=== PATIENT | female | born 1940 | race Caucasian/White ===

== ENCOUNTER 2016-07-10 04:12 | Inpatient (IN) | payer MEDICARE, BC ==
[~2016-07-10] VITALS: Ht 170.2 cm; Wt 72.1 kg
[2016-07-10] VITALS (14 sets, daily range): BP systolic 109–176; BP diastolic 68–103; PULSE 64–94; RESP 16–24; TEMP 95.7–98; O2SAT 90–97
[2016-07-10 04:42] LABS: AUTOMATED NEUTROPHIL # 5.4 TH/MM3 (1.8-7.7); BASOPHIL # 0.1 TH/MM3 (0-0.2); BASOPHIL % 0.9 % (0.0-2.0); EOSINOPHIL # 0.1 TH/MM3 (0-0.4); EOSINOPHIL % 1.4 % (0.0-4.0); HEMATOCRIT 40.2 % (35.0-46.0); HEMO FLAGS DIFF FINAL; LYMPH % 22.7 % (9.0-44.0); LYMPHOCYTE # 1.8 TH/MM3 (1.0-4.8); MEAN CELL VOLUME 82.8 FL (80.0-100.0); MEAN CORPUSCULAR HEMOGLOBIN 28.5 PG (27.0-34.0); MEAN CORPUSCULAR HGB CONC 34.4 % (32.0-36.0); MONO % 7.6 % (0.0-8.0); NEUT % 67.4 % (16.0-70.0); PLATELET COUNT 254 TH/MM3 (150-450); RED BLOOD COUNT 4.86 MIL/MM3 (4.00-5.30); RED CELL DISTRIBUTION WIDTH 14.4 % (11.6-17.2); WHITE BLOOD COUNT 8.1 TH/MM3 (4.0-11.0)
[2016-07-10 04:49] LABS: APTT (PATIENT) 36.6 SEC (24.3-30.1); INTERNATIONAL NORMALIZED RATIO 2.8 RATIO; PROTHROMBIN TIME - PATIENT 32.9 SEC (9.8-11.6)
[2016-07-10] MEDS ORDERED: FLUT1SPR5 EACH NARE (04:50)
[2016-07-10] MEDS ORDERED: COUM1TAB PO (04:50)
[2016-07-10] MEDS ORDERED: CHOL1TAB42 (04:50)
[2016-07-10] MEDS ORDERED: DILT180C7 PO (04:50)
[2016-07-10] MEDS ORDERED: ASPI81CH CHEW (04:50)
[2016-07-10] MEDS ORDERED: COUM6TAB PO (04:50)
[2016-07-10] MEDS ORDERED: OXYB10TA PO (04:50)
[2016-07-10] MEDS ORDERED: LOSA50TA PO (04:50)
[2016-07-10] MEDS ORDERED: CALCTAB19 PO (04:50)
[2016-07-10] MEDS ORDERED: PRAV20TA2 PO (04:50)
[2016-07-10] MEDS ORDERED: OMEP20CA2 (04:50)
[2016-07-10] MEDS ORDERED: HYDR25TA5 PO (04:50)
[2016-07-10] MEDS ORDERED: FLEC100T PO (04:50)
[2016-07-10] MEDS ORDERED: LEVO25TA4 PO (04:50)
[2016-07-10] MEDS ORDERED: MORPHINE SULFATE 4 MG/ML INJ IV PUSH ONE (05:00)
[2016-07-10] MEDS ORDERED: SODIUM CHLOR 0.9% 1000 ML INJ 1,000 ML IV SCH (05:00)
[2016-07-10] MEDS ORDERED: ONDANSETRON HCL 4 MG/2 ML VIAL IV PUSH ONE ×2 (05:00→21:15)
[2016-07-10 05:02] LABS: ANION GAP 9 MEQ/L (5-15); AST (GOT) 16 U/L (15-37); BICARBONATE 25.1 MEQ/L (21.0-32.0); BLOOD UREA NITROGEN 29 MG/DL (7-18); CHLORIDE 107 MEQ/L (98-107); GLOMERULAR FILTRATION RATE 33 ML/MIN (>89); POTASSIUM 4.1 MEQ/L (3.5-5.1); SODIUM (NA) 141 MEQ/L (136-145)
[2016-07-10 05:04] LABS: ALKALINE PHOSPHATASE 70 U/L (45-117); ALT (GPT) 19 U/L (10-53); TOTAL BILIRUBIN ADULT 0.2 MG/DL (0.2-1.0)
--- NOTE | 2016-07-10 05:08 | RADRPT ---
EXAM DATE/TIME: 07/10/2016 04:37 [facility] COMPARISON: No previous studies available for comparison. INDICATIONS : Trauma, fall. MEDICAL HISTORY : None. SURGICAL HISTORY : None. ENCOUNTER: Initial ACUITY: 1 day PAIN SCORE: 0/10 LOCATION: Bilateral chest FINDINGS: A single view of the chest demonstrates the lungs to be symmetrically aerated without evidence of mas s, infiltrate or effusion. The cardiomediastinal contours are unremarkable except tortuous aorta. O sseous structures are intact. CONCLUSION: 1. No acute findings. Mildly tortuous aorta. Clemente Honeycutt MD on July 10, 2016 at 5:05 Board Certified Radiologist. This report was verified electronically.
--- NOTE | 2016-07-10 05:14 | RADRPT ---
EXAM DATE/TIME: 07/10/2016 04:35 [facility] COMPARISON: No previous studies available for comparison. INDICATIONS : Trauma, fall. MEDICAL HISTORY : None. SURGICAL HISTORY : None. ENCOUNTER: Initial ACUITY: 1 day PAIN SCORE: 10/10 LOCATION: Right hip. FINDINGS: There is a mildly displaced right femoral neck fracture. No dislocation. No other fractures identifie d. Osteopenia. Probable small calcified fibroid in the central pelvis. CONCLUSION: 1. Right femoral neck fracture with mild angulation and displacement. Clemente Honeycutt MD on July 10, 2016 at 5:12 Board Certified Radiologist. This report was verified electronically.
--- NOTE | 2016-07-10 05:28 | PD ---
HPI Chief Complaint: Fall Time Seen by Provider: 04:20 Travel History International Travel<30 days: No Contact w/Intl Traveler<30days: No Traveled to known affect area: No History of Present Illness HPI The patient is a 76 year old female who presents to the [facility] emergency department with a history of reportedly when getting out of bed this morning slipping on the floor and landing on her right lateral hip. The patient reports that she heard a pop. She was not able to get up. She reports having severe right groin, right hip pain. The patient is noted to have a slightly shortened, externally rotated right hip. The patient was brought in by ambulance services. The patient denies hitting her head or losing consciousness. She denies having any neck pain, paresthesias, or weakness in her extremities. He denies having any chest pain, chest pressure, or shortness of breath. She does have a history of atrial fibrillation and is chronically anticoagulated on Coumadin. She reports that she last had her INR checked 3 weeks ago. She reports that her INR has been therapeutic. She is on 6 mg of Coumadin daily. The patient denies any recent fevers, cough, congestion, abdominal pain, vomiting, diarrhea, urinary symptoms, or neurologic symptoms. [facility] Past Medical History Narrative Medical The patient's past medical history is significant for atrial fibrillation, hypertension, hyperlipidemia, strabismus, hypothyroid disorder, acid reflux Atrial Fibrillation: Yes Heart Rhythm Problems: Yes High Cholesterol: Yes GERD: Yes Hypertension: Yes Thyroid Disease: Yes Tetanus Vaccination: Unknown Influenza Vaccination: Yes ?: Not Tubal Ligation: Yes Past Surgical History Narrative Surgical The patient's past surgical history is significant for tonsillectomy, nodule removal from her vocal cord, cholecystectomy, left wrist ORIF, right shoulder ORIF, eye surgery 2 on the left, left breast tumor removal that was found to be benign. Appendectomy: Yes Cholecystectomy: Yes Eye Surgery: Yes (L EYE) Oral Surgery: Yes (NODULES REMOVED FROM VOCAL CORDS) Social History Alcohol Use: No Tobacco Use: No Substance Use: No Allergies-Medications (Allergen,Severity, Reaction): Coded Allergies: Codeine (Verified Allergy, Intermediate, 07/10/16) Reported Meds & Prescriptions Reported Meds & Active Scripts Active Reported Oxybutynin ER 24 HR (Oxybutynin Chloride) 10 Mg Tab 10 Mg PO DAILY Vitamin D-3 (Cholecalciferol) 2,000 Unit Tab Levothyroxine (Levothyroxine Sodium) 25 Mcg Tab 25 Mcg PO DAILY Pravastatin 20 Mg Tab 20 Mg PO DAILY Omeprazole 20 Mg Cap Losartan (Losartan Potassium) 50 Mg Tab 50 Mg PO DAILY Hydrochlorothiazide 25 Mg Tab 25 Mg PO DAILY Coumadin (Warfarin) 1 Mg Tab 1 Mg PO DAILY Coumadin (Warfarin) 6 Mg Tab 6 Mg PO DAILY Flecainide (Flecainide Acetate) 100 Mg Tab 100 Mg PO BID Diltiazem ER 24 HR (Diltiazem HCl) 180 Mg Caper 180 Mg PO DAILY Flonase Nasal [place] (Fluticasone Nasal [place]) 50 Mcg/Act [place] 50 Mcg EACH NARE BID Calcium 600+D 200 (Calcium Carbonate-Vitamin D) 600-200 Mg-Unit Tab 1 Tab PO BID Aspirin 81 Mg Chew 81 Mg CHEW DAILY Review of Systems Except as stated in HPI: all other systems reviewed are Neg General / Constitutional: No: Fever Eyes: No: Visual changes HENT: No: Headaches Cardiovascular: No: Chest Pain or Discomfort Respiratory: No: Shortness of Breath Gastrointestinal: No: Abdominal Pain Genitourinary: No: Dysuria Musculoskeletal: Positive: Myalgias, Arthralgias, Limited ROM, Pain Skin: No Rash Neurologic: No: Weakness, Focal Abnormalities, Coordination Problem, Change in Mentation, Slurred Speech, Sensory Disturbance Psychiatric: No: Depression Endocrine: No: Polydipsia Hematologic/Lymphatic: No: Easy Bruising Physical Exam Narrative General: The patient is a well-developed well-nourished female, uncomfortable appearing on examination, holding her right hip. Head and Neck exam: Head is normocephalic atraumatic. Eyes: Pupils are equal round and reactive to light. The patient has strabismus noted. She has a history of this. Nose: Midline septum with pink mucous membranes Mouth: Dentition unremarkable. Moist mucus membranes. Posterior oropharynx is not erythematous. No tonsillar hypertrophy. Uvula midline. Airway patent. Neck: No palpable lymphadenopathy. No nuchal rigidity. No thyromegaly. Cardiovascular: Regular rate and rhythm without murmurs, gallops, or rubs. The patient on her telemetry is noted to be in atrial flutter. Lungs: Clear to auscultation bilaterally. No wheezes, rhonchi, or rales. Abdomen: Soft, without tenderness to palpation in all 4 quadrants of the abdomen. No guarding, rebound, or rigidity. Normal bowel sounds are audible. Extremities: No clubbing, cyanosis, or edema. 2+ pulses in all 4 extremities. The patient has slight shortening and external rotation of the right leg. The patient has no tenderness on palpation of the foot, ankle, knee. The patient has intact sensation over all toes. The patient has less than 3 second capillary refill. The patient on examination with any type of attempted motion of the right hip has pain. Back: No costovertebral angle tenderness to palpation. Neurologic Exam: Grossly nonfocal. Skin Exam: No rash noted. Intact skin that is warm and dry. Data Data Last Documented VS Vital Signs Date Time Temp Pulse Resp B/P Pulse Ox O2 Delivery O2 Flow Rate FiO2 07/10/16 04:12 98.0 78 16 176/91 90 07/10/16 04:12 Room Air 07/10/16 04:12 2 Orders Hip, Uni(Ap&Lat) W Ap Pelvis (07/10/16 04:20) Electrocardiogram (07/10/16 04:20) Complete Blood Count With Diff (07/10/16 04:20) Comprehensive Metabolic Panel (07/10/16 04:20) Prothrombin Time / Inr (Pt) (07/10/16 04:20) Act Partial Throm Time (Ptt) (07/10/16 04:20) Urinalysis - C+S If Indicated (07/10/16 04:20) Chest, Single Ap (07/10/16 04:20) Iv Access Insert/Monitor (07/10/16 04:20) Ecg Monitoring (07/10/16 04:20) Oximetry (07/10/16 04:20) Urinary Catheter Insert/Apply (07/10/16 04:20) Morphine Inj (Morphine Inj) (07/10/16 05:00) Ondansetron Inj (Zofran Inj) (07/10/16 05:00) Sodium Chlor 0.9% 1000 Ml Inj (Ns 1000 M (07/10/16 05:00) Urine Culture (07/10/16 05:00) Admit Order (Ed Use Only) (07/10/16 06:04) Labs Laboratory Tests Test 2/07/10/16 07/10/16 04:15 04:20 05:00 Prothrombin Time 32.9 SEC Prothromb Time International 2.8 RATIO Ratio Activated Partial 36.6 SEC Thromboplast Time Sodium Level 141 MEQ/L Potassium Level 4.1 MEQ/L Chloride Level 107 MEQ/L Carbon Dioxide Level 25.1 MEQ/L Anion Gap 9 MEQ/L Blood Urea Nitrogen 29 MG/DL Creatinine 1.53 MG/DL Estimat Glomerular Filtration 33 ML/MIN Rate Random Glucose 104 MG/DL Calcium Level 8.4 MG/DL Total Bilirubin 0.2 MG/DL Aspartate Amino Transf 16 U/L (AST/SGOT) Alanine Aminotransferase 19 U/L (ALT/SGPT) Alkaline Phosphatase 70 U/L Total Protein 7.6 GM/DL Albumin 3.7 GM/DL Blood Type A NEGATIVE Blood Bank Comment White Blood Count 8.1 TH/MM3 Red Blood Count 4.86 MIL/MM3 Hemoglobin 13.8 GM/DL Hematocrit 40.2 % Mean Corpuscular Volume 82.8 FL Mean Corpuscular Hemoglobin 28.5 PG Mean Corpuscular Hemoglobin 34.4 % Concent Red Cell Distribution Width 14.4 % Platelet Count 254 TH/MM3 Mean Platelet Volume 8.5 FL Neutrophils (%) (Auto) 67.4 % Lymphocytes (%) (Auto) 22.7 % Monocytes (%) (Auto) 7.6 % Eosinophils (%) (Auto) 1.4 % Basophils (%) (Auto) 0.9 % Neutrophils # (Auto) 5.4 TH/MM3 Lymphocytes # (Auto) 1.8 TH/MM3 Monocytes # (Auto) 0.6 TH/MM3 Eosinophils # (Auto) 0.1 TH/MM3 Basophils # (Auto) 0.1 TH/MM3 CBC Comment DIFF FINAL Differential Comment Urine Color YELLOW Urine Turbidity HAZY Urine pH 6.5 Urine Specific [place] 1.020 Urine Protein TRACE mg/dL Urine Glucose (UA) NEG mg/dL Urine Ketones NEG mg/dL Urine Occult Blood TRACE Urine Nitrite NEG Urine Bilirubin NEG Urine Urobilinogen LESS THAN 2.0 MG/DL Urine Leukocyte Esterase LARGE Urine RBC 5 /hpf Urine WBC 100 /hpf Urine Squamous Epithelial <1 /hpf Cells Urine Transitional Epithelial <1 /hpf Cells Urine Bacteria MANY /hpf Urine Mucus FEW /lpf Microscopic Urinalysis Comment CULTURE INDICATED MDM Medical Decision Making Medical Screen Exam Complete: Yes Emergency Medical Condition: Yes Medical Record Reviewed: Yes Interpretation(s) Last Impressions Hip and Pelvis X-Ray 07/10/16419 Signed Impressions: Service Date/Time: Sunday, July 10, 2016 04:35 - CONCLUSION: 1. Right femoral neck fracture with mild angulation and displacement. Clemente Honeycutt MD Chest X-Ray 07/10/16419 Signed Impressions: Service Date/Time: Sunday, July 10, 2016 04:37 - CONCLUSION: 1. No acute findings. Mildly tortuous aorta. Clemente Honeycutt MD Differential Diagnosis Right hip fracture, versus dislocation, versus musculoskeletal strain Narrative Course During the course of the patients emergency department visit, the patients history, examination, and differential diagnosis were reviewed with the patient. The patient had IV access obtained and blood work sent for analysis. The patient was placed on a cardiac cath lab manager with oximetry and blood pressure monitoring. An EKG was done on arrival. The patient's EKG shows atrial flutter with a heart rate of 78, no acute ST segment changes are noted. The patient was provided morphine for pain, Zofran for nausea. The patient was started on maintenance normal saline IV fluids. Her right hip x-ray revealed a femoral neck fracture, the orthopedic physician was called regarding this patient's case. The patient will have a Calderon catheter placed to gravity. The patients laboratory studies were reviewed and remarkable for a CBC that is within normal limits, CMP that is remarkable for BUN of 29, creatinine 1.53, calcium 8.4, INR 2.8. Radiology studies were reviewed and remarkable for a right femoral neck fracture. The patients results were discussed with the patient, including the plan of care. I explained that further testing and/ or monitoring is indicated based on the patients history, examination, and/ or laboratory findings. Therefore, I recommended admission for additional evaluation. The patient expressed understanding and was agreeable with this plan. The patient was admitted to the hospital in stable condition and sent to a bed under the care of the [facility] hospitalist group. Physician Communication Physician Communication The patient's case was discussed with Dhiraj Anderson who did agree to admit the patient to the [facility] hospitalist group. The patient's case was d/w the PA for Dr. Carter in the ED. They will see the patient in consultation. Diagnosis Primary Impression: Fall Qualified Code: W19.XXXA - Fall, initial encounter Additional Impression: Fracture of femoral neck, right Qualified Code: S72.001A - Closed fracture of neck of right femur, initial encounter Admitting Information Admitting Physician Requests: Admit Brenda Lakhani MD Jul 10, 2016 05:28
[2016-07-10 05:36] LABS: BACTERIA, URINE MANY /hpf; BLOOD, URINE TRACE (NEG); COMMENT (UR) CULTURE INDICATED; CULTURE IF INDICATED CULTURE INDICATED; GLUCOSE,URINE NEG (NEG); KETONE, URINE NEG (NEG); MUCUS URINE FEW /lpf (OCC); NITRITE,URINE NEG (NEG); PH, URINE 6.5 (5.0-8.5); SQUAMOUS EPITHELIAL CELL URINE <1 /hpf (0-5); TRANSITIONAL EPI CELLS, URINE <1 /hpf; URINE COLOR YELLOW (YELLW/STRAW)
[2016-07-10] MEDS ORDERED: PHYTONADIONE 10 MG/ML VIAL SQ ONE (06:30)
[2016-07-10] MEDS ORDERED: SODIUM CHLOR 0.9% 250 ML INJ 250 ML IV ONE (06:30)
[2016-07-10] MEDS ORDERED: ACETAMINOPHEN/HYDROcodone 325 MG/5 MG TAB PO PRN (07:15)
[2016-07-10] MEDS ORDERED: ACETAMINOPHEN 325 MG TAB PO PRN (07:15)
[2016-07-10] MEDS ORDERED: NALOXONE HCL 0.4 MG/ML AMP IV PRN (07:15)
[2016-07-10] MEDS ORDERED: ACETAMINOPHEN/HYDROcodone 325 MG/7.5 MG TAB PO PRN (07:15)
[2016-07-10] MEDS ORDERED: SODIUM CHLORIDE 0.9% FLUSH 5 ML FLUSH FLUSH PRN (07:15)
[2016-07-10] MEDS ORDERED: MORPHINE SULFATE 4 MG/ML INJ IV PRN (07:15)
--- NOTE | 2016-07-10 07:16 | PD.ORT.PN ---
Subjective Subjective Remarks s/p fall at home right hip pain. Objective Vitals Vital Signs Date Time Temp Pulse Resp B/P Pulse Ox O2 Delivery O2 Flow Rate FiO2 07/10/16 04:12 98.0 78 16 176/91 90 07/10/16 04:12 78 16 90 Room Air 07/10/16 04:12 16 94 Nasal Cannula 2 Result Diagram: 07/10/1641907/10/165 Other Results Laboratory Tests Test 07/10/16 04:15 Prothrombin Time 32.9 SEC (9.8-11.6) Prothromb Time International 2.8 RATIO Ratio Imaging Last 24 hours Impressions Hip and Pelvis X-Ray 07/10/16419 Signed Impressions: Service Date/Time: Sunday, July 10, 2016 04:35 - CONCLUSION: 1. Right femoral neck fracture with mild angulation and displacement. Clemente Honeycutt MD Chest X-Ray 07/10/16419 Signed Impressions: Service Date/Time: Sunday, July 10, 2016 04:37 - CONCLUSION: 1. No acute findings. Mildly tortuous aorta. Clemente Honeycutt MD Objective Remarks RLE: pain with motion of hip. no pain in knee or ankle LLE: full motion. no pain. nvi BUE: full motion. no pain. nvi Assessment & Plan Assessment and Plan 1) Right Femoral Neck Fx -INR too high for surgery today -give 2un FFP and 10mg Vit K -redraw PT/INR at 1600 -resume diet and NPO after MN -sign consents -plan for surgery tomorrow Cong Payne Jul 10, 2016 07:16
[2016-07-10] MEDS: ONDANSETRON HCL 4 MG/2 ML VIAL IVP PRN ×3 (07:40→19:10)
[2016-07-10] MEDS: MORPHINE SULFATE 4 MG/ML INJ IV PRN ×3 (07:40→21:12)
[2016-07-10] MEDS: SODIUM CHLOR 0.9% 1000 ML INJ 1,000 ML IV SCH (08:00)
[2016-07-10] MEDS: SODIUM CHLORIDE 0.9% FLUSH 5 ML FLUSH FLUSH SCH ×2 (09:00→21:35)
[2016-07-10] MEDS ORDERED: hydrALAZINE HCL 20 MG/ML VIAL IV PUSH PRN (09:45)
[2016-07-10] MEDS: FLUTICASONE PROPIONATE 50 MCG/ACT 16 GM NASAL SPRAY EACH NARE SCH ×2 (09:45→21:00)
[2016-07-10] MEDS: TOLTERODINE TARTRATE 4 MG CAP LA PO SCH (10:00)
[2016-07-10] MEDS: cefTRIAXone INJ 1,000 MG in SODIUM CHLORIDE 0.9% INJ 100 ML IV SCH (10:34)
[2016-07-10] MEDS: DILTIAZEM-CD 180 MG CAP ER PO SCH (10:34)
[2016-07-10] MEDS: LEVOTHYROXINE SODIUM 25 MCG TAB PO SCH (10:34)
[2016-07-10] MEDS: FLECAINIDE ACETATE 100 MG TAB PO SCH ×2 (10:39→21:00)
--- NOTE | 2016-07-10 10:57 | MB ---
cc: CONNOR ROUSE MD DATE OF CONSULTATION 07/10/2016 INDICATION Cardiac clearance. HISTORY OF PRESENT ILLNESS This 76-year-old very nice female who recently got out of bed and fell, slipped on the floor landing on her right hip. She developed significant pain, heard a pop. She was brought in by ambulance and found to have a femoral neck fracture. She was seen by Orthopedics and potentially scheduled for surgery tomorrow. She has history of atrial fibrillation, follows with a [facility] up in [place], does not have a [facility] down here in [place]. 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 She does not have any prior history of any obstructive coronary disease. She states that her last heart cath was about 3-4 years ago and no intervention was done. She denies any recent exertional angina. She does have some rather infrequent atypical pain on the right side of her chest that comes maybe once a month, nonexertional, not consistent with angina. She has atrial fibrillation and prior mini-TIAs years ago. We are consulted for further recommendations and cardiac clearance. PAST MEDICAL HISTORY 1. Atrial fibrillation. 2. Hypertension. 3. Hyperlipidemia. 4. Gastroesophageal reflux disease. 5. Hypothyroidism. SOCIAL HISTORY Denies any alcohol, tobacco or drug use. ALLERGIES CODEINE. MEDICATIONS 1. Oxybutynin. 2. Vitamin D. 3. Levothyroxine. 4. Pravastatin. 5. Omeprazole. 6. Losartan. 7. Hydrochlorothiazide. 8. Coumadin. 9. Flecainide. 10. Diltiazem. 11. Flonase. 12. Calcium. 13. Aspirin. REVIEW OF SYSTEMS A 12-point review of systems was performed, negative unless otherwise noted in the History of Present Illness. PHYSICAL EXAMINATION VITAL SIGNS: Temperature is 96, pulse is 84, blood pressure 147/86 mmHg. GENERAL: Alert and oriented x 3, in no acute distress. HEENT EXAM: Pupils reactive to light and accommodation. Extraocular movements are intact. NECK: No elevation in jugular venous distension. No thyromegaly or lymphadenopathy. No carotid bruits. LUNGS: Clear to auscultation bilaterally. CARDIOVASCULAR EXAM: Irregular irregular rhythm without murmurs, rubs or gallops. ABDOMEN: Soft. Nontender, nondistended. Good bowel sounds. No hepatosplenomegaly. EXTREMITIES: No clubbing, cyanosis or edema. Good peripheral pulses. NEUROLOGIC: Cranial nerves intact. Motor and sensory grossly intact. MUSCULOSKELETAL: She has external rotation of the right leg. LABORATORY DATA WBC 8.1, hemoglobin 13.8, platelet count 254. INR is 2.8. Sodium is 141, potassium 4.1, BUN is 29, creatinine is 1.53. ASSESSMENT 1. Hip fracture. 2. Atrial fibrillation. 3. TIAs. 4. Hypertension. 5. Hyperlipidemia. PLAN The patient prior to this was otherwise functionally active, generates greater than 4 metabolic equivalents, without angina. From a cardiac perspective, there is no need for any preoperative stress test. She is an acceptable cardiovascular risk to proceed with surgery. She has slightly higher stroke risk given her age, comorbidities, atrial fibrillation and prior TIAs. Unfortunately, we do not have much alternative given the need for invasive strategy. Would recommend post-procedural to reinitiate anticoagulation as seen fit by the orthopedic surgeon. We will sign off. Call with any further questions. MD LEENA Alvarado/RAUDEL /10:04 AM /10:44 AM
[2016-07-10] MEDS: LACTATED RINGER'S 1000 ML IV SCH (12:00)
[2016-07-10] MEDS: SODIUM CHLORID 0.9% 500 ML IV SCH (12:00)
[2016-07-10] MEDS ORDERED: INSULIN HUMAN REGULAR 1,000 UNITS/10 ML VIAL SQ PRN (12:00)
[2016-07-10] MEDS ORDERED: METOPROLOL TARTRATE 25 MG TAB PO PRN (12:00)
--- NOTE | 2016-07-10 12:59 | MH ---
cc: SOUMYA MCADAMS DATE OF ADMISSION: 07/10/2016 DATE OF 1940 CHIEF COMPLAINT Fall with hip injury. TRAVEL HISTORY: She has had no travel in the past 30 days. HISTORY OF PRESENT ILLNESS This is a pleasant 76-year-old white female been in her usual state of health. She got out of the bed approximately of 300 and slipped, falling onto the floor and landing on her right hip the patient remembers hearing a popping a sound and was unable to get up she call for her to assist her and EMS was called at that time the patient denies any syncopal episodes are any loss of consciousness. She denies hitting her head and denies any nausea, vomiting, chest pain, shortness of breath or any neck pain before this incident. The patient does have a significant history of atrial field and is currently on Coumadin the patient had a according to the record. The patient had INR checked approximately three weeks ago in her level was therapeutic. She takes 6 mg of Coumadin daily. The patient denies any diarrhea. No cough. No fever and before this incident denies any generalized weakness. The patient and her are snow birds, and are here for the last few months. MEDICAL HISTORY According to the patient and record; 1. Hypertension 2. Hyperlipidemia 3. hypothyroid 4. gastroesophageal reflux disease. 5. Strabismus PAST SURGICAL HISTORY 1. Appendectomy 2. Cholecystectomy 3. left eye surgery 4. oral surgery nodules removed from her vocal cords 5. left wrist 6. right shoulder 7. Open reduction, internal fixation. 8. left breast 9. benign tumors removed. ALLERGIES CODEINE. MEDICATIONS Reported 1. Vitamin D 2. Levothyroxine 3. Oxybutynin 4. Pravastatin 5. Omeprazole 6. Losartan. 7. Hydrochlorothiazide. 8. Coumadin 6 mg table and a 1 mg 9. Flecainide 10. Cardizem a.m. 11. Fluconazole. 12. Nasal spray. 13. Calcium. 14. Aspirin. SOCIAL HISTORY Currently the patient is , lives with her . No tobacco, alcohol or illicit drug use. FAMILY HISTORY Heart disease. REVIEW OF SYSTEMS A 12-point review was done, positives noted in the history of present illness, recent fall, right groin and right hip pain. Negative for any diabetes all other systems were negative or unremarkable. EXAMINATION VITAL SIGNS: Temperature is 96.5, 98 on emergency room admission, pulse 84, respirations 20, blood pressure 147/86, has been as high as 176/91, O2 sat 93 on room air. She does have 2 liters of O2 per nasal cannula p.r.n. HEAD, EYES, EARS, NOSE, AND THROAT: Atraumatic, normocephalic. Pupils equal, round, reactive to light and accommodation at three. No scleral icterus. Mucous membranes, septum and oral cavity are pink and moist, patent airway. NECK: Neck is supple. CARDIOVASCULAR SYSTEM: The patient has a regular rhythm with some irregularity no murmurs, rubs or gallops audible. Please note that the patient is on telemetry and appears to be in atrial flutter, so regular rhythm with some irregularity she has no edema. Pulses are intact. LUNGS: Lungs are essentially clear anteriorly and posteriorly with no wheezes, rales or rhonchi. ABDOMEN: Abdomen is flat, soft, nontender, nondistended. Active bowel sounds in all four quads. EXTREMITIES: As stated no edema. Pulses are intact. She does have a external rotation to the right leg but no tenderness in her calf. The patient is guarding her right leg and hip probable secondary to her injury. NEUROLOGIC: She is alert and oriented a good historian. Her speech is clear. PSYCHIATRIC: Appropriate mood and affect. SKIN: The skin is warm and dry. Turgor is good. DIAGNOSTIC DATA WBC count 8.1, RBC 4.86, hemoglobin 13.8, hematocrit 40.2, platelet count 254. PT INR 2.8. Her urine is yellow, hazy, pH is 6.5, specific gravity 1.2020, trace of protein, negative for glucose or ketones, but a trace of blood, large amount of leukocyte esterase, negative nitrites, negative bilirubin. 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 Chest x-ray No acute findings, mildly tortuous aorta. Hip and pelvis x-ray of the right leg right femoral neck fracture with mild angulation and displacement. ASSESSMENT: 1. Right hip femoral neck fracture with angulation and displacement. Fall 2. Probable urinary tract infection. 3. Acute kidney injury. 4. Atrial fibrillation currently on Coumadin therapy. Gastroesophageal reflux disease. 5. Hyperlipidemia. 6. Hypertension. PLAN: Plan is to admit as an inpatient due to this fall. The patient is set up for surgical procedure in the a.m. Orthopedic consult has been performed and we will monitor her medical comorbidities and her postop phase with the orthopedic physician. The patient will have vital signs q.4 h and p.r.n. as needed classroom monitor secondary to her history of atrial fibrillation and current atrial flutter. The patient has received Vitamin K and her Coumadin is on hold for her surgery in the morning. We will order and monitor her labs for the a.m. with special attention to her PT level. Will place her on Rocephin for her Urinary tract infection. Pain management p.r.n. hydralazine for blood pressure. Sequential compression devices for deep venous thrombosis prophylaxis. Reconcile her medications as needed. P.r.n. meds for any fever and continuous monitoring of her vital signs for blood pressure needs and any heart rate needs. The patient will receive O2 p.r.n. her diet will be a regular diet. She will be n.p.o. at that time for her orthopedic surgical procedure. The patient understands the process, she understands her plan of care. She is full code, full aggressive care and we will follow. DICTATED BY: AMPARO Santo MD VIKI Rey/dewey /10:11 AM /12:59 PM
--- NOTE | 2016-07-10 14:41 | HHI.HP ---
[facility] Service [facility] Primary Care Physician Jefferson Dawson MD Admission Diagnosis right femoral neck fx, anticoagulated on coumadin, aflutter Diagnoses: Travel History International Travel<30 Days: No Contact w/Intl Traveler <30 Da: No Traveled to Known Affected Are: No Past Family Social History Allergies: Coded Allergies: Codeine (Verified Allergy, Intermediate, 07/10/16) Physical Exam Vital Signs Vital Signs Date Time Temp Pulse Resp B/P Pulse Ox O2 Delivery O2 Flow Rate FiO2 07/10/16 12:24 97.8 66 16 120/76 07/10/16 12:07 96.6 66 18 109/68 97 07/10/16 10:06 84 07/10/16 08:01 20 07/10/16 08:00 84 20 147/86 93 Room Air 07/10/16 08:00 96.5 90 18 157/86 97 07/10/16 07:28 94 20 158/103 93 Room Air 07/10/16 04:12 98.0 78 16 176/91 90 07/10/16 04:12 78 16 90 Room Air 07/10/16 04:12 16 94 Nasal Cannula 2 Physical Exam GENERAL: This is a well-nourished, well-developed patient, in no apparent distress. SKIN: No rashes, ecchymoses or lesions. Cool and dry. HEAD: Atraumatic. Normocephalic. No temporal or scalp tenderness. EYES: Pupils equal round and reactive. Extraocular motions intact. No scleral icterus. No injection or drainage. ENT: Nose without bleeding, purulent drainage or septal hematoma. Throat without erythema, tonsillar hypertrophy or exudate. Uvula midline. Airway patent. NECK: Trachea midline. No JVD or lymphadenopathy. Supple, nontender, no meningeal signs. CARDIOVASCULAR: Regular rate and rhythm without murmurs, gallops, or rubs. RESPIRATORY: Clear to auscultation. Breath sounds equal bilaterally. No wheezes , rales, or rhonchi. GASTROINTESTINAL: Abdomen soft, non-tender, nondistended. No hepato-splenomegaly , or palpable masses. No guarding. MUSCULOSKELETAL: Extremities without clubbing, cyanosis, or edema. No joint tenderness, effusion, or edema noted. No calf tenderness. Negative Homans sign bilaterally. NEUROLOGICAL: Awake and alert. Cranial nerves II through XII intact. Motor and sensory grossly within normal limits. Five out of 5 muscle strength in all muscle groups. Normal speech. Laboratory Laboratory Tests Test 07/10/16 07/10/16 07/10/16 07/10/16 04:15 04:20 05:00 08:02 Prothrombin Time 32.9 Prothromb Time International 2.8 Ratio Activated Partial 36.6 Thromboplast Time Sodium Level 141 Potassium Level 4.1 Chloride Level 107 Carbon Dioxide Level 25.1 Anion Gap 9 Blood Urea Nitrogen 29 Creatinine 1.53 Estimat Glomerular Filtration 33 Rate Random Glucose 104 Calcium Level 8.4 Total Bilirubin 0.2 Aspartate Amino Transf 16 (AST/SGOT) Alanine Aminotransferase 19 (ALT/SGPT) Alkaline Phosphatase 70 Total Protein 7.6 Albumin 3.7 Blood Type A NEGATIVE A NEGATIVE Blood Bank Comment White Blood Count 8.1 Red Blood Count 4.86 Hemoglobin 13.8 Hematocrit 40.2 Mean Corpuscular Volume 82.8 Mean Corpuscular Hemoglobin 28.5 Mean Corpuscular Hemoglobin 34.4 Concent Red Cell Distribution Width 14.4 Platelet Count 254 Mean Platelet Volume 8.5 Neutrophils (%) (Auto) 67.4 Lymphocytes (%) (Auto) 22.7 Monocytes (%) (Auto) 7.6 Eosinophils (%) (Auto) 1.4 Basophils (%) (Auto) 0.9 Neutrophils # (Auto) 5.4 Lymphocytes # (Auto) 1.8 Monocytes # (Auto) 0.6 Eosinophils # (Auto) 0.1 Basophils # (Auto) 0.1 CBC Comment DIFF FINAL Differential Comment Urine Color YELLOW Urine Turbidity HAZY Urine pH 6.5 Urine Specific [place] 1.020 Urine Protein TRACE Urine Glucose (UA) NEG Urine Ketones NEG Urine Occult Blood TRACE Urine Nitrite NEG Urine Bilirubin NEG Urine Urobilinogen LESS THAN 2.0 Urine Leukocyte Esterase LARGE Urine RBC 5 Urine WBC 100 Urine Squamous Epithelial <1 Cells Urine Transitional Epithelial <1 Cells Urine Bacteria MANY Urine Mucus FEW Microscopic Urinalysis Comment CULTURE INDICATED Date/Time Procedure Status Source Growth 07/10/16 05:00 Urine Culture Received Urine Random Urine Pending Result Diagram: 07/10/16 0420 07/10/16 0415 Assessment and Plan Assessment and Plan Patient seen and examined Please refer to admission H & P for details s/p fall, hip fracture pain control NPo after midnight plan for surgery in am s/p VIt k FFPs in progress labs in am n/v with likely [place], allergic to codiene, will try po dilaudid discussed with patient discussed with nursing staff discussed with Luh CHRISTENSEN Physician Certification 2 Midnight Certification Type: Admission for Inpatient Services Order for Inpatient Services The services are ordered in accordance with Medicare regulations or non- Medicare payer requirements, as applicable. In the case of services not specified as inpatient-only, they are appropriately provided as inpatient services in accordance with the 2-midnight benchmark. Estimated LOS (days): 3 days is the estimated time the patient will need to remain in the hospital, assuming treatment plan goals are met and no additional complications. Post-Hospital Plan: [facility] Emerita Pires MD Jul 10, 2016 14:41
[2016-07-10] MEDS ORDERED: HYDROmorphone HCL 2 MG TAB PO PRN (14:45)
[2016-07-10 16:59] LABS: INTERNATIONAL NORMALIZED RATIO 2.1 RATIO; PROTHROMBIN TIME - PATIENT 23.4 SEC (9.8-11.6)
[2016-07-10] MEDS ORDERED: DILTIAZEM HCL 25 MG/5 ML VIAL ONE (18:42)
[2016-07-10] MEDS ORDERED: NITROGLYCERIN 0.4 MG SL 25 TABS/BTL SL ONE (18:42)
[2016-07-10] MEDS ORDERED: NITROGLYCERIN 0.4 MG SL 25 TABS/BTL SL STA (18:46)
[2016-07-10] MEDS ORDERED: DILTIAZEM HCL 25 MG/5 ML VIAL IV STA (18:46)
[2016-07-10] MEDS ORDERED: HEPARIN SODIUM - IV 10,000 UNITS/10 ML VIAL IV PRN ×2 (19:00)
[2016-07-10] MEDS ORDERED: HEPARIN 25,000 UNITS-D5W 250 ML - PREMIX IV SCH (19:00)
[2016-07-10 19:24] LABS: AUTOMATED NEUTROPHIL # 10.8 TH/MM3 (1.8-7.7); BASOPHIL % 0.3 % (0.0-2.0); EOSINOPHIL % 0.2 % (0.0-4.0); HEMATOCRIT 39.6 % (35.0-46.0); HEMO FLAGS DIFF FINAL; LYMPH % 7.2 % (9.0-44.0); LYMPHOCYTE # 0.9 TH/MM3 (1.0-4.8); MEAN CELL VOLUME 83.1 FL (80.0-100.0); MEAN CORPUSCULAR HEMOGLOBIN 27.7 PG (27.0-34.0); MEAN CORPUSCULAR HGB CONC 33.4 % (32.0-36.0); MONO % 4.3 % (0.0-8.0); PLATELET COUNT 267 TH/MM3 (150-450); RED BLOOD COUNT 4.76 MIL/MM3 (4.00-5.30); RED CELL DISTRIBUTION WIDTH 14.5 % (11.6-17.2); WHITE BLOOD COUNT 12.3 TH/MM3 (4.0-11.0)
[2016-07-10] MEDS ORDERED: NITROGLYCERIN-DEXTROSE INJ 250 ML ONE (19:29)
--- NOTE | 2016-07-10 19:57 | RADRPT ---
EXAM DATE/TIME: 07/10/2016 18:33 [facility] COMPARISON: CHEST SINGLE AP, July 10, 2016, 4:37. INDICATIONS : Chest pain. MEDICAL HISTORY : Right femoral neck fracture SURGICAL HISTORY : None. ENCOUNTER: Subsequent ACUITY: 1 day PAIN SCORE: 4/10 LOCATION: Bilateral chest FINDINGS: Mild diffuse interstitial vascular prominence has developed. There is no evidence of consolidating ai rspace disease. Retrocardiac density containing air is characteristic of a hiatal hernia. Nasogastric tube is coiled within the hernia. No other findings noted. CONCLUSION: Mild interstitial vascular prominence which may represent mild fluid overload. Moderate size hiatal hernia with coiled NG tube as described. No evidence of consolidating airspace disease. Gurdeep Crane MD on July 10, 2016 at 19:54 Board Certified Radiologist. This report was verified electronically.
[2016-07-10] MEDS ORDERED: NITROGLYCERIN/DEXTROSE 5% 250 ML for chest pain IV SCH (20:00)
[2016-07-10 20:09] LABS: APTT (PATIENT) 37.6 SEC (24.3-30.1); PROTHROMBIN TIME - PATIENT 22.6 SEC (9.8-11.6)
[2016-07-10] MEDS ORDERED: IODIXANOL 320 MG/ML 50 ML VIAL (for Rad CT) IV ONE (20:16)
--- NOTE | 2016-07-10 20:30 | RADRPT ---
EXAM DATE/TIME: 07/10/2016 19:56 [facility] COMPARISON: No previous studies available for comparison. INDICATIONS : Shortness of breath and recent surgery. IV CONTRAST: 50 cc Visipaque (iodixanol) IV RADIATION DOSE: 23.38 CTDIvol (mGy) MEDICAL HISTORY : Hypertension. SURGICAL HISTORY : Appendectomy. Cholecystectomy.Tubal ligation. ENCOUNTER: Initial ACUITY: 1 day PAIN SCALE: 5/10 LOCATION: chest TECHNIQUE: Volumetric scanning of the chest was performed using a pulmonary embolism protocol MIP images were re constructed. Using automated exposure control and adjustment of the mA and/or kV according to patien t size, radiation dose was kept as low as reasonably achievable to obtain optimal diagnostic quality images. FINDINGS: PULMONARY ARTERIES: No filling defects are seen in the pulmonary arteries through the segmental level. LUNGS: There is interstitial prominence especially in the lower lobes is noted. There is developing airspace disease in both lower lobes especially on the right. PLEURAE: Fluid is developing in the interlobar fissures. There is no significant pleural effusion. MEDIASTINUM: There is good visualization of the great vessels of the middle mediastinum. No evidence of mediastin al or hilar adenopathy/mass. MUSCULOSKELETAL: Within normal limits for patient age. MISCELLANEOUS: Moderate to large hiatal hernia is identified. CONCLUSION: No evidence of pulmonary embolism. Basilar interstitial lung disease with developing airspace disease suggesting mild pulmonary congesti on. Moderate large hiatal hernia. Gurdeep Crane MD on July 10, 2016 at 20:25 Board Certified Radiologist. This report was verified electronically.
[2016-07-10] MEDS: PRAVASTATIN SOD 20 MG TAB PO SCH (21:00)
[2016-07-11] VITALS (13 sets, daily range): BP systolic 125–157; BP diastolic 74–87; PULSE 77–109; RESP 16–20; TEMP 96.5–98.8; O2SAT 95–97
[2016-07-11] MEDS: ONDANSETRON HCL 4 MG/2 ML VIAL IVP PRN ×3 (01:12→09:08)
[2016-07-11 01:36] LABS: BICARBONATE 24.8 MEQ/L (21.0-32.0); POTASSIUM 3.8 MEQ/L (3.5-5.1)
[2016-07-11] MEDS: HYDROmorphone HCL PF 1 MG/ML VIAL IV PRN ×2 (02:52→11:30)
[2016-07-11 02:54] LABS: AUTOMATED NEUTROPHIL # 11.1 TH/MM3 (1.8-7.7); BASOPHIL % 0.2 % (0.0-2.0); EOSINOPHIL % 0.1 % (0.0-4.0); HEMATOCRIT 39.2 % (35.0-46.0); HEMO FLAGS DIFF FINAL; LYMPH % 6.5 % (9.0-44.0); LYMPHOCYTE # 0.8 TH/MM3 (1.0-4.8); MEAN CELL VOLUME 83.2 FL (80.0-100.0); MEAN CORPUSCULAR HEMOGLOBIN 27.8 PG (27.0-34.0); MEAN CORPUSCULAR HGB CONC 33.4 % (32.0-36.0); MONO % 3.9 % (0.0-8.0); NEUT % 89.3 % (16.0-70.0); PLATELET COUNT 238 TH/MM3 (150-450); RED BLOOD COUNT 4.71 MIL/MM3 (4.00-5.30); RED CELL DISTRIBUTION WIDTH 14.6 % (11.6-17.2); WHITE BLOOD COUNT 12.4 TH/MM3 (4.0-11.0)
[2016-07-11 03:05] LABS: APTT (PATIENT) 47.4 SEC (24.3-30.1); INTERNATIONAL NORMALIZED RATIO 1.5 RATIO; PROTHROMBIN TIME - PATIENT 17.4 SEC (9.8-11.6)
[2016-07-11] MEDS: PANTOPRAZOLE 80 MG/100 ML NS IV SCH ×4 (03:39→12:47)
[2016-07-11] MEDS: SODIUM CHLORID 0.9% 500 ML IV SCH (04:40)
[2016-07-11] MEDS: SCOPOLAMINE 1.5 MG PATCH TD SCH (04:47)
[2016-07-11] MEDS: LEVOTHYROXINE SODIUM 25 MCG TAB PO SCH (05:48)
--- NOTE | 2016-07-11 07:50 | PD.ORT.PN ---
Subjective Subjective Remarks s/p fall at home right hip pain. right femoral neck fx Objective Vitals Vital Signs Date Time Temp Pulse Resp B/P Pulse Ox O2 Delivery O2 Flow Rate FiO2 07/11/16 06:00 83 07/11/16 04:00 81 07/11/16 04:00 97.9 81 16 149/76 97 07/11/16 04:00 97 Nasal Cannula 4.00 07/11/16 02:00 84 07/11/16 00:00 79 07/11/16 00:00 97 Nasal Cannula 4.00 07/11/16 00:00 96.5 79 20 154/78 97 07/10/16 22:00 77 07/10/16 20:00 74 07/10/16 20:00 96.0 74 24 151/79 92 07/10/16 19:02 96 Nasal Cannula 3.00 07/10/16 18:41 97.8 72 18 163/78 97 07/10/16 18:00 93 Nasal Cannula 2.00 07/10/16 18:00 96 4.00 07/10/16 17:05 91 07/10/16 16:00 96.7 64 16 131/69 94 07/10/16 14:00 95.7 64 18 116/81 95 07/10/16 12:24 97.8 66 16 120/76 07/10/16 12:07 96.6 66 18 109/68 97 07/10/16 10:06 84 07/10/16 08:01 20 07/10/16 08:00 84 20 147/86 93 Room Air 07/10/16 08:00 96.5 90 18 157/86 97 I/O 07/10/16 07/10/16 07/10/16 07/11/16 07/11/16 07/11/16 07:00 15:00 23:00 07:00 15:00 23:00 Intake Total 480 ml 1081 ml 403 ml Output Total 950 ml 750 ml 650 ml Balance -470 ml 331 ml -247 ml Intake Oral 480 ml IV Total 1081 ml 403 ml Output Urine Total 950 ml 650 ml 600 ml Gastric Drainage Total 100 ml 50 ml # Bowel Movements 0 0 0 Result Diagram: 07/11/16 0214 07/11/16 0037 Other Results Laboratory Tests Test 07/10/16 07/10/16 07/11/16 15:55 18:45 02:14 Prothrombin Time 23.4 SEC 22.6 SEC 17.4 SEC (9.8-11.6) (9.8-11.6) (9.8-11.6) Prothromb Time International 2.1 RATIO 2.0 RATIO 1.5 RATIO Ratio Imaging Last 24 hours Impressions Hip and Pelvis X-Ray 07/10/16419 Signed Impressions: Service Date/Time: Sunday, July 10, 2016 04:35 - CONCLUSION: 1. Right femoral neck fracture with mild angulation and displacement. Clemente Honeycutt MD Chest X-Ray 07/10/16419 Signed Impressions: Service Date/Time: Sunday, July 10, 2016 04:37 - CONCLUSION: 1. No acute findings. Mildly tortuous aorta. Clemente Honeycutt MD Objective Remarks RLE: pain with motion of hip. no pain in knee or ankle LLE: full motion. no pain. nvi BUE: full motion. no pain. nvi Assessment & Plan Assessment and Plan 1) Right Femoral Neck Fx -INR 1.5 -give 1 unit FFP -plan for hold heparin tomorrow at 4am -npo after MN -will tentatively plan for surgery tomorrow pending cardiac workup Cong Payne Jul 11, 2016 07:50
[2016-07-11] MEDS ORDERED: SODIUM CHLOR 0.9% 250 ML INJ 250 ML IV ONE (08:15)
[2016-07-11] MEDS: FLUTICASONE PROPIONATE 50 MCG/ACT 16 GM NASAL SPRAY EACH NARE SCH ×2 (09:00→21:25)
[2016-07-11] MEDS: LACTATED RINGER'S 1000 ML IV SCH (09:19)
[2016-07-11] MEDS: cefTRIAXone INJ 1,000 MG in SODIUM CHLORIDE 0.9% INJ 100 ML IV SCH (09:19)
[2016-07-11] MEDS: DILTIAZEM-CD 180 MG CAP ER PO SCH (09:20)
[2016-07-11] MEDS: FLECAINIDE ACETATE 100 MG TAB PO SCH (09:20)
[2016-07-11] MEDS: TOLTERODINE TARTRATE 4 MG CAP LA PO SCH (09:20)
[2016-07-11] MEDS: SODIUM CHLORIDE 0.9% FLUSH 5 ML FLUSH FLUSH SCH ×2 (09:23→21:23)
--- NOTE | 2016-07-11 09:24 | PD.CARD.PN ---
Subjective Subjective Remarks events noted from last night acute onset of substernal CP, diaphoresis, and N/V stat CTA showed no pulmonary embolism. Aorta not dilated. no obvious dissection. on heparin gtt and nitro gtt. Objective Medications Active Medications Ceftriaxone Sodium/Sodium Chloride (Rocephin Inj/NS Inj) 100 ml @ 200 mls/hr Q24H IV Last administered on 07/10/16 10:34; Admin Dose 200 MLS/HR; Start 07/10 at 10:00 Diltiazem HCl (Cardizem Cd) 180 mg DAILY PO Last administered on 07/10/16 10:34 ; Admin Dose 180 MG; Start 07/10/16 at 10:00 Diltiazem HCl 25 mg 25 mg STK-MED ONCE .ROUTE; Start 07/10/16 at 18:42; Stop at 18:43; Status DC Flecainide Acetate (Tambocor) 100 mg BID PO Last administered on 07/10/16 10:39 ; Admin Dose 100 MG; Start 07/10/16 at 09:45 Fluticasone Propionate (Flonase Marcial Spr) 1 spray BID EACH NARE; Start 07/10/16 at 09:45 Heparin Sodium (Porcine) (Heparin Inj) 5,000 units UNSCH PRN IV; Start at 19:00; Status Future Hold Heparin Sodium (Porcine) 2500 units 2,500 units UNSCH PRN IV; Start 07/10/16 at 19:00; Status Future Hold Heparin Sodium/ Dextrose (Heparin-D5W Inj) 250 ml @ 0 mls/hr TITRATE IV Last administered on 07/10/16 21:47; Admin Dose 0 MLS/HR; Start 07/10/16 at 19:00 Hydralazine HCl 10 mg 10 mg Q6H PRN IV PUSH; Start 07/10/16 at 09:45 Hydromorphone HCl (Dilaudid) 2 mg Q4H PRN PO; Start 07/10/16 at 14:45 Hydromorphone HCl 0.5 mg 0.5 mg Q4H PRN IV Last administered on 07/11/16 02:52 ; Admin Dose 0.5 MG; Start 07/11/16 at 02:45 Iodixanol (VISIPAQUE 320 INJ (Rad CT)) 50 ml STK-MED ONCE IV Last administered on 07/10/16 20:16; Admin Dose 50 ML; Start 07/10/16 at 20:16; Stop 07/10/16 at 20:17; Status DC Lactated Ringer's 1,000 ml @ 30 mls/hr Q24H IV; Start 07/10/16 at 12:00 Levothyroxine Sodium (Synthroid) 25 mcg DAILY@06 PO Last administered on 10:34; Admin Dose 25 MCG; Start 07/10/16 at 09:45 Miscellaneous Information 1 1 Q3D TD; Start 07/14/16 at 02:45 Nitroglycerin (Nitrostat Sl (Adm Override)) 0.4 mg STK-MED ONCE SL; Start at 18:42; Stop 07/10/16 at 18:43; Status DC Nitroglycerin/ Dextrose 250 ml @ As Directed STK-MED ONCE .ROUTE; Start at 19:29; Stop 07/10/16 at 19:30; Status DC Nitroglycerin/ Dextrose (Nitroglycerin-Dextrose Inj) 250 ml @ 0 mls/hr TITRATE IV; Start 07/10/16 at 20:00 Ondansetron HCl (Zofran Inj) 4 mg Q4HR PRN IVP Last administered on 07/11/16 09 :08; Admin Dose 4 MG; Start 07/11/16 at 02:45 Ondansetron HCl (Zofran Inj) 4 mg STAT ONCE IV PUSH Last administered on 21:33; Admin Dose 4 MG; Start 07/10/16 at 21:15; Stop 07/10/16 at 21:16; Status DC Pantoprazole Sodium/Sodium Chloride (Protonix Inj/NS Inj) 100 ml @ 10 mls/hr Q10H IV Last administered on 07/11/16 03:39; Admin Dose 10 MLS/HR; Start at 02:45 Pravastatin Sodium (Pravachol) 20 mg HS PO; Start 07/10/16 at 21:00 Scopolamine (Transderm-Scop 1.5 Mg Patch.72 Hr) 1 patch Q3D TD Last administered on 07/11/16 04:47; Admin Dose 1 PATCH; Start 07/11/16 at 02:45 Sodium Chloride (NS 250 ml Inj) 250 ml @ 15 mls/hr ONCE ONCE IV; Start at 08:15; Stop 07/12/16 at 00:54 Sodium Chloride (NS 500 ml Inj) 500 ml @ 30 mls/hr [id number] IV; Start 07/10/16 at 12:00; Stop 07/11/16 at 11:59 Tolterodine Tartrate (Detrol La) 4 mg DAILY PO; Start 07/10/16 at 10:00 Vital Signs / I&O Vital Signs Date Time Temp Pulse Resp B/P Pulse Ox O2 Delivery O2 Flow Rate FiO2 07/11/16 06:00 83 07/11/16 04:00 81 07/11/16 04:00 97.9 81 16 149/76 97 07/11/16 04:00 97 Nasal Cannula 4.00 07/11/16 02:00 84 07/11/16 00:00 79 07/11/16 00:00 97 Nasal Cannula 4.00 07/11/16 00:00 96.5 79 20 154/78 97 07/10/16 22:00 77 07/10/16 20:00 74 07/10/16 20:00 96.0 74 24 151/79 92 07/10/16 19:02 96 Nasal Cannula 3.00 07/10/16 18:41 97.8 72 18 163/78 97 07/10/16 18:00 93 Nasal Cannula 2.00 07/10/16 18:00 96 4.00 07/10/16 17:05 91 07/10/16 16:00 96.7 64 16 131/69 94 07/10/16 14:00 95.7 64 18 116/81 95 07/10/16 12:24 97.8 66 16 120/76 07/10/16 12:07 96.6 66 18 109/68 97 07/10/16 10:06 84 I/O 07/10/16 07/10/16 07/10/16 07/11/16 07/11/16 07/11/16 07:00 15:00 23:00 07:00 15:00 23:00 Intake Total 480 ml 1081 ml 403 ml Output Total 950 ml 750 ml 650 ml Balance -470 ml 331 ml -247 ml Intake Oral 480 ml IV Total 1081 ml 403 ml Output Urine Total 950 ml 650 ml 600 ml Gastric Drainage Total 100 ml 50 ml # Bowel Movements 0 0 0 Physical Exam CARDIOVASCULAR: Regular rate and rhythm without murmurs, gallops, or rubs. RESPIRATORY: Breath sounds equal bilaterally. No accessory muscle use. GASTROINTESTINAL: Abdomen soft, non-tender, nondistended. Laboratory Laboratory Tests Test 07/10/16 07/10/16 07/10/16 07/11/16 15:55 18:30 18:45 00:37 Prothrombin Time 23.4 SEC 22.6 SEC Prothromb Time International 2.1 RATIO 2.0 RATIO Ratio Nasal Screen MRSA (PCR) NEGATIVE White Blood Count 12.3 TH/MM3 Red Blood Count 4.76 MIL/MM3 Hemoglobin 13.2 GM/DL Hematocrit 39.6 % Mean Corpuscular Volume 83.1 FL Mean Corpuscular Hemoglobin 27.7 PG Mean Corpuscular Hemoglobin 33.4 % Concent Red Cell Distribution Width 14.5 % Platelet Count 267 TH/MM3 Mean Platelet Volume 8.4 FL Neutrophils (%) (Auto) 88.0 % Lymphocytes (%) (Auto) 7.2 % Monocytes (%) (Auto) 4.3 % Eosinophils (%) (Auto) 0.2 % Basophils (%) (Auto) 0.3 % Neutrophils # (Auto) 10.8 TH/MM3 Lymphocytes # (Auto) 0.9 TH/MM3 Monocytes # (Auto) 0.5 TH/MM3 Eosinophils # (Auto) 0.0 TH/MM3 Basophils # (Auto) 0.0 TH/MM3 CBC Comment DIFF FINAL Differential Comment Activated Partial 37.6 SEC Thromboplast Time Troponin I 0.12 NG/ML 0.20 NG/ML Sodium Level 139 MEQ/L Potassium Level 3.8 MEQ/L Chloride Level 104 MEQ/L Carbon Dioxide Level 24.8 MEQ/L Anion Gap 10 MEQ/L Blood Urea Nitrogen 14 MG/DL Creatinine 0.87 MG/DL Estimat Glomerular Filtration 64 ML/MIN Rate Random Glucose 131 MG/DL Calcium Level 8.4 MG/DL Test 07/11/16 07/11/16 02:14 08:11 White Blood Count 12.4 TH/MM3 Red Blood Count 4.71 MIL/MM3 Hemoglobin 13.1 GM/DL Hematocrit 39.2 % Mean Corpuscular Volume 83.2 FL Mean Corpuscular Hemoglobin 27.8 PG Mean Corpuscular Hemoglobin 33.4 % Concent Red Cell Distribution Width 14.6 % Platelet Count 238 TH/MM3 Mean Platelet Volume 8.2 FL Neutrophils (%) (Auto) 89.3 % Lymphocytes (%) (Auto) 6.5 % Monocytes (%) (Auto) 3.9 % Eosinophils (%) (Auto) 0.1 % Basophils (%) (Auto) 0.2 % Neutrophils # (Auto) 11.1 TH/MM3 Lymphocytes # (Auto) 0.8 TH/MM3 Monocytes # (Auto) 0.5 TH/MM3 Eosinophils # (Auto) 0.0 TH/MM3 Basophils # (Auto) 0.0 TH/MM3 CBC Comment DIFF FINAL Differential Comment Prothrombin Time 17.4 SEC Prothromb Time International 1.5 RATIO Ratio Activated Partial 47.4 SEC Thromboplast Time Blood Bank Comment Imaging Last Impressions Hip and Pelvis X-Ray 07/10/16419 Signed Impressions: Service Date/Time: Sunday, July 10, 2016 04:35 - CONCLUSION: 1. Right femoral neck fracture with mild angulation and displacement. Clemente Honeycutt MD Chest X-Ray 07/10/16419 Signed Impressions: Service Date/Time: Sunday, July 10, 2016 04:37 - CONCLUSION: 1. No acute findings. Mildly tortuous aorta. Clemente Honeycutt MD CT Angiography 07/10/16 0000 Signed Impressions: Service Date/Time: Sunday, July 10, 2016 19:56 - CONCLUSION: No evidence of pulmonary embolism. Basilar interstitial lung disease with developing airspace disease suggesting mild pulmonary congestion. Moderate large hiatal hernia. Gurdeep Crane MD Assessment and Plan Assessment and Plan NSTEMI - new onset CP. EKG changes. troponin elevation. she will now need ischemic workup prior to clearance for surgery. Plan for LHC. afib - on heparin gtt. NPO N/V - may need GI eval. still having symptoms of N/V despite resolution of her CP on nitro gtt. Reese Johnson MD Jul 11, 2016 09:24
--- NOTE | 2016-07-11 10:56 | EKG ---
Date Performed: 07/10/2016 Time Performed: 18:06:35 PTAGE: 76 years EKG: ATRIAL FLUTTER/TACHYCARDIA MODERATE ST DEPRESSION ABNORMAL ECG PREVIOUS TRACING : 07/10/2016 04.17 DOCTOR: Reese Johnson Interpretating Date/Time 07/11/2016 10:55:00
--- NOTE | 2016-07-11 11:29 | MB ---
cc: GOGO MCADAMS MD, TODD DATE OF CONSULTATION: 07/11/2016 REASON FOR CONSULTATION Right femoral neck fracture. CONSULTING PHYSICIAN Dr. Mcadams HISTORY OF PRESENT ILLNESS Autumn is a 76-year-old female who got out of bed and had a fall. She landed on her right hip. She was at home when she fell. She denies any dizziness or syncope. She had immediate right hip pain. She was unable to stand or ambulate. She presented to the emergency room where x-rays revealed a displaced right femoral neck fracture. She did not hit her head. She has a history of atrial fibrillation and is currently on Coumadin. The patient was admitted for treatment of this injury. The patient was noted to have an abnormal EKG. Cardiology has been consulted for further treatment of her heart. She is currently on Coumadin and a heparin drip. She is currently awake and alert in the [facility]. Pain is worse with any hip motion and is improved with rest. PAST MEDICAL HISTORY ILLNESSES 1. Hypertension. 2. High cholesterol. 3. Hypothyroidism. 4. Reflux. 5. Strabismus. SURGERIES 1. Appendectomy. 2. Cholecystectomy. 3. Left eye surgery. 4. Left breast biopsy. 5. Removal of benign tumors. ALLERGIES CODEINE. MEDICATIONS 1. Vitamin-D. 2. Levothyroxine. 3. Pravastatin. 4. Oxybutynin. 5. Omeprazole. 6. Losartan. 7. Hydrochlorothiazide. 8. Coumadin. 9. Flecainide. 10.Cardizem. 11.Fluconazole. 12.Calcium. 13.Aspirin. SOCIAL HISTORY The patient is and lives with her . They are [employer] [place] and only live in [place] during the winter. She denies alcohol, tobacco or drug use. FAMILY HISTORY Positive for coronary artery disease. REVIEW OF SYSTEMS The patient denies headache, visual changes, neck pain, chest pain, shortness of breath, abdominal pain, nausea, vomiting or recent weight loss. She does complain of right hip pain. PHYSICAL EXAMINATION GENERAL: The patient is a well-developed, well-nourished 76-year-old female in no acute distress. She is awake and alert. She has she significant nausea since her hospitalization. VITAL SIGNS: Temperature 97.9, pulse 81, respirations 16, blood pressure 149/76. O2 sat is 97% on four liter nasal cannula. HEAD: The patient is normocephalic. Pupils are equal. NECK: Soft, nontender. Trachea is midline. ABDOMEN: Soft, nontender, nondistended. EXTREMITIES: Examination of bilateral upper extremities reveals no pain with shoulder, elbow or wrist motion. Skin is intact to both hands. Radial pulses are palpable. Jewel Bearing Turner strength is +5. Examination of left leg reveals no pain with hip, knee or ankle motion. Skin is intact. Dorsalis pedis pulse is palpable. Sensation is intact. Examination of right leg reveals pain with any hip motion. She has no tenderness around her knee, tibia or ankle. Skin is intact. Dorsalis pedis pulse is intact. Sensation is intact to both feet. X-RAYS X-rays of right hip were reviewed. X-rays reveal a displaced right femoral neck fracture. IMPRESSION 1. Displaced right femoral neck fracture. 2. Possible osteoporosis. 3. Acute chest pain. PLAN At this point the patient is being seen by cardiology. The patient does have elevated troponin as well as EKG changes. She is currently scheduled to go to the cardiac lab for catheterization. Once the patient's heart is stabilized and she is medically cleared she will likely need surgery on her left hip. The patient will need a left hip hemiarthroplasty. The risks of surgery include bleeding, infection, injuries to arteries, nerves and blood vessels, hip dislocation, leg length discrepancy, femur fracture, as well as medical complications including blood clot, stroke, heart attack and . All questions were answered. I will continue to follow the patient until she is cleared for surgery. If she is not cleared for surgery she may need to be treated nonoperatively. Without surgery she will be unable to ambulate. All questions were answered. A mid-level provider in my office, nurse practitioner or PA, may see this patient on a follow-up basis and continue to implement the objective of this plan including: Starting or adjusting medications, injections of muscle, tendon, bursa or joints, cast application, orthotic or brace application, physical therapy, further radiographic studies including x-ray, MRI, CT, ultrasounds or bone scan, vascular studies, neurologic studies, or other specialist consultations, and proceeding with surgical management as appropriate. MD RACHAEL Webb/MYNOR /11:03 AM /11:19 AM
--- NOTE | 2016-07-11 11:44 | EKG ---
Date Performed: 07/10/2016 Time Performed: 04:17:49 PTAGE: 76 years EKG: ATRIAL FLUTTER/TACHYCARDIA LOW QRS VOLTAGE IN EXTREMITY LEADS ST DEVIATION AND MODERATE T-W AVE ABNORMALITY, CONSIDER INFERIOR ISCHEMIA ABNORMAL ECG NO PREVIOUS TRACING DOCTOR: Reese Johnson Interpretating Date/Time 07/11/2016 11:42:55
[2016-07-11] MEDS ORDERED: IOHEXOL 350 MG/ML 50 ML BTL (for Cath Lab) OTHER ONE (13:15)
[2016-07-11] MEDS ORDERED: HEPARIN-NS/PF INJ 500 ML ONE (13:23)
--- NOTE | 2016-07-11 14:27 | HHI.PR ---
Subjective Interval History awake alert and oriented overnight events noted with patient developing chest pressure , elevated troponin , requiring transfer to ICU now chest pain free still having some nausea/ vomiting at bed side plan to go for cardiac cath later today Vitals/Results Intake & Output 07/10/16 07/10/16 07/11/16 15:00 23:00 07:00 Intake Total 480 ml 1081 ml 403 ml Output Total 950 ml 750 ml 650 ml Balance -470 ml 331 ml -247 ml Intake Oral 480 ml IV Total 1081 ml 403 ml Output Urine Total 950 ml 650 ml 600 ml Gastric Drainage Total 100 ml 50 ml # Bowel Movements 0 0 0 Vital Signs Vital Signs Date Time Temp Pulse Resp B/P Pulse Ox O2 Delivery O2 Flow Rate FiO2 07/11/16 12:00 97 Nasal Cannula 4.00 07/11/16 12:00 85 07/11/16 12:00 98.6 85 20 133/74 97 07/11/16 12:00 20 07/11/16 11:10 24 07/11/16 10:00 80 07/11/16 08:00 98.4 77 18 157/87 97 07/11/16 08:00 88 07/11/16 08:00 97 Nasal Cannula 4.00 07/11/16 06:00 83 07/11/16 04:00 81 07/11/16 04:00 97.9 81 16 149/76 97 07/11/16 04:00 97 Nasal Cannula 4.00 07/11/16 02:00 84 07/11/16 00:00 79 07/11/16 00:00 97 Nasal Cannula 4.00 07/11/16 00:00 96.5 79 20 154/78 97 07/10/16 22:00 77 07/10/16 20:00 74 07/10/16 20:00 96.0 74 24 151/79 92 07/10/16 19:02 96 Nasal Cannula 3.00 07/10/16 18:41 97.8 72 18 163/78 97 07/10/16 18:00 93 Nasal Cannula 2.00 07/10/16 18:00 96 4.00 07/10/16 17:05 91 07/10/16 16:00 96.7 64 16 131/69 94 CBC/BMP: 07/11/16 0214 07/11/16 0037 Lab Results Laboratory Tests Test 07/10/16 07/10/16 07/10/16 07/11/16 15:55 18:30 18:45 00:37 Prothrombin Time 23.4 SEC 22.6 SEC Prothromb Time International 2.1 RATIO 2.0 RATIO Ratio Nasal Screen MRSA (PCR) NEGATIVE White Blood Count 12.3 TH/MM3 Red Blood Count 4.76 MIL/MM3 Hemoglobin 13.2 GM/DL Hematocrit 39.6 % Mean Corpuscular Volume 83.1 FL Mean Corpuscular Hemoglobin 27.7 PG Mean Corpuscular Hemoglobin 33.4 % Concent Red Cell Distribution Width 14.5 % Platelet Count 267 TH/MM3 Mean Platelet Volume 8.4 FL Neutrophils (%) (Auto) 88.0 % Lymphocytes (%) (Auto) 7.2 % Monocytes (%) (Auto) 4.3 % Eosinophils (%) (Auto) 0.2 % Basophils (%) (Auto) 0.3 % Neutrophils # (Auto) 10.8 TH/MM3 Lymphocytes # (Auto) 0.9 TH/MM3 Monocytes # (Auto) 0.5 TH/MM3 Eosinophils # (Auto) 0.0 TH/MM3 Basophils # (Auto) 0.0 TH/MM3 CBC Comment DIFF FINAL Differential Comment Activated Partial 37.6 SEC Thromboplast Time Troponin I 0.12 NG/ML 0.20 NG/ML Sodium Level 139 MEQ/L Potassium Level 3.8 MEQ/L Chloride Level 104 MEQ/L Carbon Dioxide Level 24.8 MEQ/L Anion Gap 10 MEQ/L Blood Urea Nitrogen 14 MG/DL Creatinine 0.87 MG/DL Estimat Glomerular Filtration 64 ML/MIN Rate Random Glucose 131 MG/DL Calcium Level 8.4 MG/DL Test 07/11/16 07/11/16 02:14 08:11 White Blood Count 12.4 TH/MM3 Red Blood Count 4.71 MIL/MM3 Hemoglobin 13.1 GM/DL Hematocrit 39.2 % Mean Corpuscular Volume 83.2 FL Mean Corpuscular Hemoglobin 27.8 PG Mean Corpuscular Hemoglobin 33.4 % Concent Red Cell Distribution Width 14.6 % Platelet Count 238 TH/MM3 Mean Platelet Volume 8.2 FL Neutrophils (%) (Auto) 89.3 % Lymphocytes (%) (Auto) 6.5 % Monocytes (%) (Auto) 3.9 % Eosinophils (%) (Auto) 0.1 % Basophils (%) (Auto) 0.2 % Neutrophils # (Auto) 11.1 TH/MM3 Lymphocytes # (Auto) 0.8 TH/MM3 Monocytes # (Auto) 0.5 TH/MM3 Eosinophils # (Auto) 0.0 TH/MM3 Basophils # (Auto) 0.0 TH/MM3 CBC Comment DIFF FINAL Differential Comment Prothrombin Time 17.4 SEC Prothromb Time International 1.5 RATIO Ratio Activated Partial 47.4 SEC Thromboplast Time Blood Bank Comment Physical Exam General General Appearance: No Acute Distress, Comfortable Eyes Eye Exam: Pupils Equal, Pupils Reactive Throat Throat Exam: Oral Mucosa [place] & Moist Pulmonary Resp Exam: Clear Bilaterally, Breath Sounds Equal Cardiology CV Exam: Irregular Gastrointestinal/Abdomen GI Exam: Soft, Non-Tender, Bowel Sounds Present Extremeties Extremities Exam: No Edema Neurologic Neuro Exam: Alert, Awake, Oriented, Speech Clear Psychiatric Psych Exam: Appropriate Responses Assessment/Plan Assessment/Plan ASSESSMENT: 1. Right hip femoral neck fracture with angulation and displacement. Fall 2. Probable urinary tract infection. 3. Acute kidney injury. 4. Atrial fibrillation currently on Coumadin therapy. Gastroesophageal reflux disease. 5. Hyperlipidemia. 6. Hypertension. 7. POSSIBLE NSTEMI PLAN: patient seen and examined in ICU Appreciate Cardiology input chest pain, with elevated troponin rich NSTEMI on heparin drip cardiac cath today awaiting Cardiology clearance prior to Ortho surgery h/o A flutter coumadin on hold received Vit K and FFP yesterday in prep for surgery on heparin gtt rate controlled EZEKIEL creatinine improved i/v fluids UTI on [place] Monitor cultures GNR so far Hip fracture s/p fall ortho following planning for surgery in am, but will need Cardiology clearance prior to surgery n/v likely sec to narcotics better with dilaudid prn zofran may need to add phenergan resume home meds as appropriate DVT and GI prophylaxis discussed with patient discussed with nursing staff The patient will receive O2 p.r.n. her diet will be a regular diet. She will be n.p.o. at that time for her orthopedic surgical procedure. The patient understands the process, she understands her plan of care. She is full code, full aggressive care and we will follow. Emerita Pires MD Jul 11, 2016 14:27
--- NOTE | 2016-07-11 14:28 | MA ---
cc: CONNOR ROUSE DATE: 07/11/2016 PROCEDURE PERFORMED 1. Fluoroscopy with interpretation. 2. Left heart catheterization. 3. Left ventriculography. 4. Coronary angiography. METHOD The risks, benefits and alternatives were discussed with the patient. The patient understood and consented to the procedure. The patient was brought into the catheterization lab and placed on the catheterization table. The right wrist was prepped and draped in a sterile fashion. The right wrist was anesthetized with 2% lidocaine. The right radial artery was cannulated and a 6 [place], 7 cm sheath was placed without difficulty. 200 mcg of intra-arterial nitroglycerin was given. LEFT HEART CATHETERIZATION A 6 [place], JR5 catheter was advanced across the aortic valve without difficulty. Intraventricular hemodynamics measured at 161/10 mmHg and left ventricular end-diastolic pressure of 20 mmHg. No significant aortic stenosis by transaortic valvular pullback gradient. LEFT VENTRICULOGRAPHY Left ventriculography was performed in a right anterior oblique view using a 12 cc contrast injection with good opacification. The left ventricular ejection fraction was visually estimated at 65% without regional wall motion abnormalities. No significant mitral regurgitation was noted. CORONARY ANGIOGRAPHY 1. The left main coronary is angiographically normal. 2. The left anterior descending coronary has minor luminal irregularities. The diagonal branch has minor luminal irregularities. 3. The left circumflex has 20% stenosis in the first obtuse marginal branch. 4. The right coronary has 30% stenosis in the midsegment. The posterior descending coronary is widely patent. CONCLUSIONS 1. Mild nonobstructive coronary artery disease. 2. Normal left ventricular systolic function. PLAN The etiology to her chest pain is unclear. CT of the chest was unremarkable for pulmonary embolism or dissection. In addition now coronary angiogram shows no significant obstruction. She is cleared from a cardiac perspective to proceed with hip surgery. She will need further evaluation for the persistent nausea and vomiting from a GI perspective. MD LEENA Alvarado/MYNOR /1:56 PM /2:21 PM
[2016-07-11] MEDS ORDERED: PHYTONADIONE 10 MG/ML VIAL SQ ONE (17:00)
[2016-07-11] MEDS: SODIUM CHLOR 0.9% 1000 ML INJ 1,000 ML IV SCH ×2 (17:37→17:39)
--- NOTE | 2016-07-11 20:00 | EC ---
Study Study Date:07/11/2016 STUDY CONCLUSIONS SUMMARY - Left ventricle: The cavity size was normal. Wall thickness was normal. Systolic function was normal. The estimated ejection fraction was in the range of 60% to 65%. Wall motion was normal; there were no regional wall motion abnormalities. Doppler parameters are consistent with abnormal left ventricular relaxation (grade 1 diastolic dysfunction). - Aortic valve: Valve area: 1.92cm^2(VTI). Valve area: 1.97cm^2 (Vmax). - Mitral valve: Moderate regurgitation directed eccentrically and posteriorly. - Left atrium: The atrium was moderately dilated. - Tricuspid valve: Mild regurgitation. - Pulmonary arteries: PA peak pressure: 36mm Hg (S). If LV function is below 40, please consider prescribing an ACEI or ARB or document rationale for non-use. PROCEDURE DATA STUDY STATUS: Elective. Procedure: Transthoracic echocardiography. Image quality was good. Scanning was performed from the parasternal, apical, and subcostal acoustic windows. Study completion: The patient tolerated the procedure well. Transthoracic echocardiography. M-mode, complete 2D, complete spectral Doppler, and color Doppler. Height: Height: 67in. Weight: Weight: 156.7lb. Body mass index: BMI: 24.6kg/m^2. Body surface area: BSA: 1.82m^2. Patient status: Inpatient. CARDIAC ANATOMY LEFT VENTRICLE: The cavity size was normal. Wall thickness was normal. Systolic function was normal. The estimated ejection fraction was in the range of 60% to 65%. Wall motion was normal; there were no regional wall motion abnormalities. Doppler parameters are consistent with abnormal left ventricular relaxation (grade 1 diastolic dysfunction). AORTIC VALVE: Trileaflet; mildly thickened, mildly calcified leaflets. Doppler: Transvalvular velocity was within the normal range. There was no stenosis. No regurgitation. Valve area: 1.92cm^2(VTI). Indexed valve area: 1.05cm^2/m^2 (VTI). Valve area: 1.97cm^2 (Vmax). Indexed valve area: 1.08cm^2/m^2 (Vmax). Mean gradient: 4mm Hg (S). AORTA: Aortic root: The aortic root was normal in size. MITRAL VALVE: Structurally normal valve. Doppler: Transvalvular velocity was within the normal range. There was no evidence for stenosis. Moderate regurgitation directed eccentrically and posteriorly. Peak gradient: 4mm Hg (D). LEFT ATRIUM: The atrium was moderately dilated. RIGHT VENTRICLE: The cavity size was normal. Wall thickness was normal. PULMONIC VALVE: Doppler: Transvalvular velocity was within the normal range. There was no evidence for stenosis. No regurgitation. TRICUSPID VALVE: Structurally normal valve. Doppler: Transvalvular velocity was within the normal range. Mild regurgitation. PULMONARY ARTERY: The main pulmonary artery was normal-sized. Systolic pressure was within the normal range. RIGHT ATRIUM: The atrium was normal in size. PERICARDIUM: There was no pericardial effusion. SYSTEMIC VEINS: Inferior vena cava: The vessel was normal in size. Patient weight: 156.7lb _Ejection fraction:_ 65-75% _Fractional shortening:_ 32% up to 5Kg 5-11.5Kg 11.6-22.9Kg 23-45Kg 45-57Kg Aortic Root 7-13 <17 13-22 17-27 17-27 LA diam 6-13 <23 24-38 33-47 37-40 RVID 10-17 7-15 7-15 7-18 8-17 LVIDd 12-22 <32 24-38 33-47 37-40 LVPW 2-4 3-6 5-7 6-8 7-8 IVS 2-4 3-6 5-7 6-8 7-8 BASIC MEASUREMENTS ADULT NORMAL Left ventricle LV internal dimension, ED, chordal 44.8 mm 43-52 level, PLAX LV internal dimension, ES, chordal 30.5 mm 23-38 level, PLAX Fractional shortening, chordal level, 32 % >29 PLAX LV posterior wall thickness, ED 7.13 mm IVS/LVPW ratio, ED 1.08 <1.3 Ventricular septum Septal thickness, ED 7.67 mm Aortic valve Leaflet separation 15 mm 15-26 Aorta Root diameter, ED 30 mm Left atrium Anterior-posterior dimension 36 mm Anterior-posterior dimension index 1.98 cm/m^2 <2.2 BASIC MEASUREMENTS ADULT NORMAL Aortic valve Leaflet separation 15 mm 15-26 DOPPLER MEASUREMENTS ADULT NORMAL Main pulmonary artery Pressure, S *36 mm Hg =30 Aortic valve Peak velocity, S 131 cm/s Mean velocity, S 89.3 cm/s VTI, S 26.3 cm Mean gradient, S 4 mm Hg Valve area, VTI 1.92 cm^2 Valve area index, VTI 1.05 cm^2/m^2 Valve area, Vmax 1.97 cm^2 Valve area index, Vmax 1.08 cm^2/m^2 Mitral valve Peak E-wave velocity 95.8 cm/s Peak A-wave velocity 82.9 cm/s Deceleration time 165 ms 150-230 Peak gradient, D 4 mm Hg Peak E/A ratio 1.2 Tricuspid valve Regurgitant peak velocity 295 cm/s Peak RV-RA gradient, S 35 mm Hg Maximal regurgitant velocity 295 cm/s Systemic veins Estimated CVP 5 mm Hg Right ventricle RV pressure, S *40 mm Hg <30 Pulmonic valve Peak velocity, S 95.5 cm/s LEGEND: Mean values are shown as u=mean value. Asterisk (*) soto values outside specified normal range. Prepared and signed by Reese Johnson [id number]
[2016-07-11] MEDS: PRAVASTATIN SOD 20 MG TAB PO SCH (21:23)
[2016-07-12] VITALS (7 sets, daily range): BP systolic 94–121; BP diastolic 58–84; PULSE 78–120; RESP 16–27; TEMP 97.9–98.9; O2SAT 95–98
[2016-07-12] MEDS: PANTOPRAZOLE 80 MG/100 ML NS IV SCH ×6 (03:54→21:34)
[2016-07-12] MEDS: HYDROmorphone HCL PF 1 MG/ML VIAL IV PRN (04:31)
[2016-07-12 04:34] LABS: AUTOMATED NEUTROPHIL # 8.1 TH/MM3 (1.8-7.7); BASOPHIL # 0.1 TH/MM3 (0-0.2); BASOPHIL % 0.4 % (0.0-2.0); EOSINOPHIL # 0.1 TH/MM3 (0-0.4); EOSINOPHIL % 0.5 % (0.0-4.0); HEMATOCRIT 37.2 % (35.0-46.0); HEMO FLAGS DIFF FINAL; LYMPH % 19.9 % (9.0-44.0); LYMPHOCYTE # 2.4 TH/MM3 (1.0-4.8); MEAN CELL VOLUME 81.9 FL (80.0-100.0); MEAN CORPUSCULAR HEMOGLOBIN 28.5 PG (27.0-34.0); MEAN CORPUSCULAR HGB CONC 34.9 % (32.0-36.0); MONO % 11.8 % (0.0-8.0); NEUT % 67.4 % (16.0-70.0); PLATELET COUNT 274 TH/MM3 (150-450); RED BLOOD COUNT 4.54 MIL/MM3 (4.00-5.30); RED CELL DISTRIBUTION WIDTH 14.4 % (11.6-17.2); WHITE BLOOD COUNT 12.1 TH/MM3 (4.0-11.0)
[2016-07-12] MEDS: LEVOTHYROXINE SODIUM 25 MCG TAB PO SCH (04:34)
[2016-07-12 04:59] LABS: BICARBONATE 26.3 MEQ/L (21.0-32.0); POTASSIUM 3.5 MEQ/L (3.5-5.1)
--- NOTE | 2016-07-12 07:52 | PD.ORT.PN ---
Subjective Subjective Remarks s/p fall at home right hip pain. right femoral neck fx s/p cardiac cath Objective Vitals Vital Signs Date Time Temp Pulse Resp B/P Pulse Ox O2 Delivery O2 Flow Rate FiO2 07/12/16 06:00 100 07/12/16 05:42 30 07/12/16 04:00 98.9 120 27 120/84 96 07/12/16 04:00 96 Nasal Cannula 3.00 07/12/16 04:00 120 07/12/16 02:00 94 07/12/16 00:00 96 Nasal Cannula 3.00 07/12/16 00:00 97 07/12/16 00:00 98.6 97 18 121/80 96 07/11/16 22:00 95 07/11/16 20:00 96 Nasal Cannula 3.00 07/11/16 20:00 94 07/11/16 20:00 98.5 91 16 125/76 96 07/11/16 19:19 95 07/11/16 18:00 104 07/11/16 16:00 109 07/11/16 16:00 97 Nasal Cannula 4.00 07/11/16 16:00 98.8 97 16 132/84 97 07/11/16 14:00 88 07/11/16 12:00 97 Nasal Cannula 4.00 07/11/16 12:00 85 07/11/16 12:00 98.6 85 20 133/74 97 07/11/16 11:10 24 07/11/16 10:00 80 07/11/16 08:00 98.4 77 18 157/87 97 07/11/16 08:00 88 07/11/16 08:00 97 Nasal Cannula 4.00 I/O 07/11/16 07/11/16 07/11/16 07/12/16 07/12/16 07/12/16 07:00 15:00 23:00 07:00 15:00 23:00 Intake Total 403 ml 1252 ml 878 ml 939 ml Output Total 650 ml 645 ml 1000 ml 325 ml Balance -247 ml 607 ml -122 ml 614 ml Intake Oral 240 ml 240 ml 240 ml IV Total 403 ml 1012 ml 638 ml 699 ml Output Urine Total 600 ml 600 ml 1000 ml 325 ml Gastric Drainage Total 50 ml 45 ml # Bowel Movements 0 Result Diagram: 07/12/16 0357 07/12/16 0357 Imaging Last 24 hours Impressions Hip and Pelvis X-Ray 07/10/16419 Signed Impressions: Service Date/Time: Sunday, July 10, 2016 04:35 - CONCLUSION: 1. Right femoral neck fracture with mild angulation and displacement. Clemente Honeycutt MD Chest X-Ray 07/10/16419 Signed Impressions: Service Date/Time: Sunday, July 10, 2016 04:37 - CONCLUSION: 1. No acute findings. Mildly tortuous aorta. Clemente Honeycutt MD Objective Remarks RLE: pain with motion of hip. no pain in knee or ankle LLE: full motion. no pain. nvi BUE: full motion. no pain. nvi Assessment & Plan Assessment and Plan 1) Right Femoral Neck Fx -patient underwent cardiac cath yesterday which was neg. was cleared from cardiac standpoint -will plan for surgery today for right hip hemiarthroplasty Cong Payne Jul 12, 2016 07:52
[2016-07-12] MEDS: DILTIAZEM-CD 180 MG CAP ER PO SCH (08:18)
[2016-07-12] MEDS: TOLTERODINE TARTRATE 4 MG CAP LA PO SCH ×2 (08:18→08:29)
[2016-07-12] MEDS: SODIUM CHLORIDE 0.9% FLUSH 5 ML FLUSH FLUSH SCH (08:19)
[2016-07-12] MEDS: cefTRIAXone INJ 1,000 MG in SODIUM CHLORIDE 0.9% INJ 100 ML IV SCH (08:19)
[2016-07-12] MEDS: SODIUM CHLOR 0.9% 1000 ML INJ 1,000 ML IV SCH ×2 (08:19)
[2016-07-12] MEDS: FLUTICASONE PROPIONATE 50 MCG/ACT 16 GM NASAL SPRAY EACH NARE SCH ×2 (08:27→21:00)
[2016-07-12 08:32] LABS: INTERNATIONAL NORMALIZED RATIO 1.1 RATIO; PROTHROMBIN TIME - PATIENT 12.2 SEC (9.8-11.6)
[2016-07-12] MEDS ORDERED: VANCOMYCIN HCL 1000 MG VIAL ONE (08:51)
[2016-07-12] MEDS ORDERED: ceFAZolin 2 GM PREMIX 50 ML ONE (08:51)
[2016-07-12] MEDS ORDERED: GENTAMICIN SULFATE 80 MG/2 ML VIAL ONE (08:51)
[2016-07-12] MEDS ORDERED: ACETAMINOPHEN 1000 MG/100 ML VIAL IV ONE (09:20)
[2016-07-12] MEDS ORDERED: FAMOTIDINE 20 MG/2 ML VIAL ONE (09:20)
[2016-07-12] MEDS ORDERED: ceFAZolin INJ 1,000 MG VIAL ONE (09:20)
[2016-07-12] MEDS ORDERED: fentaNYL CITRATE 250 MCG/5 ML AMP ONE (09:21)
[2016-07-12] MEDS ORDERED: DEXAMETHASONE SOD PHOS 4 MG/ML VIAL ONE (09:21)
[2016-07-12] MEDS ORDERED: MIDAZOLAM HCL 2 MG/2 ML VIAL ONE (09:21)
[2016-07-12] MEDS ORDERED: TRANEXAMIC ACID IV SCH (10:00)
[2016-07-12] MEDS ORDERED: SODIUM CHLORIDE 0.9% IV SCH (10:00)
[2016-07-12] MEDS ORDERED: VITA2000 PO (10:07)
[2016-07-12] MEDS ORDERED: ERGO1CAP30 PO (10:07)
[2016-07-12] MEDS ORDERED: HYDR-3366 PO (10:07)
[2016-07-12] MEDS ORDERED: WALKER/ADULT/FO1 MIS (10:07)
[2016-07-12] MEDS ORDERED: CALCTAB19 PO (10:07)
[2016-07-12] MEDS ORDERED: ZOFR4TAB PO (10:10)
--- NOTE | 2016-07-12 10:42 | PD.OP ---
cc: Wes Carter MD Operative Report Date of Surgery: Jul 12, 2016 Preoperative Diagnosis: Displaced right femoral neck fracture Postoperative Diagnosis: Procedure: Right hip hemiarthroplasty Anesthesia: Gen. Surgeon: Wes Carter Cheese Grader(s): ZEV Moss PA-C The surgical procedure was assisted by my physician res habilitation assistant. My P.A. presence was necessary throughout this case for the manipulation and positioning of the surgical extremity. My P.A. was assisting me throughout the duration of this procedure. The skill set of a physician res habilitation assistant was medically necessary to complete this procedure. During the surgical case the surgical instrument technician was working at the back table and the physician res habilitation assistant was directly assisting me. Operation and Findings: PLAN OF ACTIVITY Weight bear as tolerated. IMPLANTS USED DePuy Corail size 12 stem with size 48 bipolar head and [+1.5] neck. DRAIN: 7 mm Elpidio-Todd drain DETAILS OF PROCEDURE This patient was brought into the operating room and placed on the OR table. The patient was given anesthesia. The patient received IV antibiotics. The patient was then placed in lateral decubitus position. The right hip and leg were prepped with alcohol, followed by Hibiclens and draped in a usual sterile fashion. Clean air was used for this procedure. Time out procedure was performed. The procedure began with a 5 inch incision over the posterolateral hip. The subcutaneous tissue was dissected with the Bovie. The iliotibial band were split in line with fibers. The Charnley retractor was placed. The piriformis and external rotators were released from the femur and tagged with a #1 Vicryl suture. The capsule is now incised and tagged with #1 Vicryl. The femoral neck fracture was now visualized. A corkscrew was now used to remove the femoral head. The femoral head was sized and measured. Soft tissue was now protected. The hip skid was placed underneath the femoral neck. An oscillating saw was used to make a femoral neck cut. At this point attention was turned to preparation of the proximal femur. A box osteotome was used to remove the lateral cortex of the femoral neck. The T- handle reamer was used to open the femoral canal. Next, the canal was broached. A lateralizing reamer was used to help lateralize the prosthesis. At this point a trial head and neck were placed. The hip was reduced. The patient was found to have excellent stability with good range of motion. Trial components were removed. Soft tissue and bone were thoroughly irrigated. A Corail stem was now opened. The stem was now impacted into the proximal femur. Care was taken to keep appropriate anteversion. The head and neck were now impacted onto the stem. The hip was again reduced. The hip was found to have good range of motion and good stability. Leg lengths were clinically equal. The wound was thoroughly irrigated. The capsule, piriformis and iliotibial band were closed with #1 Vicryl. Subcutaneous tissue was closed with 3-0 Vicryl. The skin was closed with milan. A sterile dressing was applied with Primapore. The patient was placed into a knee immobilizer. The patient was awakened and transferred to the recovery room in stable condition. Needle and sponge counts were correct. Wes Carter MD Jul 12, 2016 10:41
[2016-07-12] MEDS ORDERED: SODIUM CHLORIDE 0.9% FLUSH 5 ML FLUSH IVF PRN (10:45)
[2016-07-12] MEDS ORDERED: ceFAZolin 2 GM PREMIX 50 ML IV SCH (10:45)
[2016-07-12] MEDS ORDERED: ACETAMINOPHEN/HYDROcodone 325 MG/7.5 MG TAB PO PRN ×2 (10:45)
[2016-07-12] MEDS ORDERED: DO NOT ADM ANY ANTICOAGULANT DRUGS XX PRN (11:00)
[2016-07-12] MEDS ORDERED: ERGOCALCIFEROL (VIT D2) 50,000 UNIT CAP PO ONE (11:00)
[2016-07-12] MEDS ORDERED: Post-op Orders (for Pharmacy) MISC XX ONE (11:00)
[2016-07-12] MEDS ORDERED: ONDANSETRON HCL 4 MG/2 ML VIAL IV PUSH ONE (12:00)
[2016-07-12] MEDS ORDERED: NEOSTIGMINE 3 MG/3 ML SYR IV ONE (12:00)
[2016-07-12] MEDS ORDERED: PHENYLEPH/NS 1000 MCG/10 ML SYR IV ONE (12:00)
[2016-07-12] MEDS ORDERED: PROPOFOL 200 MG/20 ML AMP IV ONE (12:00)
--- NOTE | 2016-07-12 13:15 | RADRPT ---
EXAM DATE/TIME: 07/12/2016 12:05 [facility] COMPARISON: No previous studies available for comparison. INDICATIONS : Right hip replacement MEDICAL HISTORY : Hypertension. SURGICAL HISTORY : Appendectomy. Cholecystectomy.Tubal ligation. ENCOUNTER: Subsequent ACUITY: 2 days PAIN SCORE: 0/10 LOCATION: Right hip FINDINGS: Examination of the right hip was performed with AP Pelvis. Right hip arthroplasty. Post surgical cuevas ges. Surgical drain in place. Left hip intact. The acetabulum is grossly intact. CONCLUSION: Right hip arthroplasty. Alvaro Galindo MD on July 12, 2016 at 13:13 Board Certified Radiologist. This report was verified electronically.
--- NOTE | 2016-07-12 16:42 | HHI.PR ---
Subjective Subjective Remarks No chest pain No shortness of breath Hungry Alert NG tube in Family in room (Luh Chavis) Review of Systems Constitutional Constitutional: Weakness (mild) Constitutional Remarks 10 point ROS done positives noted mild weakness and constipation otherwise negative (Luh Chavis) GI/Abdomen GI/Abdominal Exam: Constipation (Luh Chavis) Vitals/Results Intake & Output 07/11/16 07/11/16 07/12/16 15:00 23:00 07:00 Intake Total 1252 ml 878 ml 939 ml Output Total 645 ml 1000 ml 325 ml Balance 607 ml -122 ml 614 ml Intake Oral 240 ml 240 ml 240 ml IV Total 1012 ml 638 ml 699 ml Output Urine Total 600 ml 1000 ml 325 ml Gastric Drainage Total 45 ml Vital Signs Vital Signs Date Time Temp Pulse Resp B/P Pulse Ox O2 Delivery O2 Flow Rate FiO2 07/12/16 15:15 97.9 80 18 94/58 98 07/12/16 13:00 88 16 119/60 95 Nasal Cannula 3 07/12/16 12:30 98 16 144/91 96 Nasal Cannula 3 07/12/16 12:00 98 16 152/86 95 Nasal Cannula 3 07/12/16 11:45 92 16 141/81 94 Nasal Cannula 3 07/12/16 11:30 98 16 146/95 95 Nasal Cannula 3 07/12/16 11:15 102 16 139/91 94 Nasal Cannula 3 07/12/16 11:05 98.5 100 16 131/85 94 Nasal Cannula 3 07/12/16 06:00 100 07/12/16 05:42 30 07/12/16 04:00 98.9 120 27 120/84 96 07/12/16 04:00 96 Nasal Cannula 3.00 07/12/16 04:00 120 07/12/16 02:00 94 07/12/16 00:00 96 Nasal Cannula 3.00 07/12/16 00:00 97 07/12/16 00:00 98.6 97 18 121/80 96 07/11/16 22:00 95 07/11/16 20:00 96 Nasal Cannula 3.00 07/11/16 20:00 94 07/11/16 20:00 98.5 91 16 125/76 96 07/11/16 19:19 95 07/11/16 18:00 104 (Luh Chavis) CBC/BMP: 07/12/16 0357 07/12/16 0357 Lab Results Laboratory Tests Test 07/12/16 07/12/16 03:57 07:55 White Blood Count 12.1 TH/MM3 Red Blood Count 4.54 MIL/MM3 Hemoglobin 13.0 GM/DL Hematocrit 37.2 % Mean Corpuscular Volume 81.9 FL Mean Corpuscular Hemoglobin 28.5 PG Mean Corpuscular Hemoglobin 34.9 % Concent Red Cell Distribution Width 14.4 % Platelet Count 274 TH/MM3 Mean Platelet Volume 8.4 FL Neutrophils (%) (Auto) 67.4 % Lymphocytes (%) (Auto) 19.9 % Monocytes (%) (Auto) 11.8 % Eosinophils (%) (Auto) 0.5 % Basophils (%) (Auto) 0.4 % Neutrophils # (Auto) 8.1 TH/MM3 Lymphocytes # (Auto) 2.4 TH/MM3 Monocytes # (Auto) 1.4 TH/MM3 Eosinophils # (Auto) 0.1 TH/MM3 Basophils # (Auto) 0.1 TH/MM3 CBC Comment DIFF FINAL Differential Comment Sodium Level 142 MEQ/L Potassium Level 3.5 MEQ/L Chloride Level 107 MEQ/L Carbon Dioxide Level 26.3 MEQ/L Anion Gap 9 MEQ/L Blood Urea Nitrogen 16 MG/DL Creatinine 1.03 MG/DL Estimat Glomerular Filtration 52 ML/MIN Rate Random Glucose 89 MG/DL Calcium Level 8.5 MG/DL 25-Hydroxy Vitamin D Total 26.1 ng/ML Prothrombin Time 12.2 SEC Prothromb Time International 1.1 RATIO Ratio (Luh Chavis) Physical Exam General General Appearance: No Acute Distress, Comfortable (Luh Chavis) Eyes Eye Exam: Pupils Equal, Pupils Reactive (Luh Chavis) Throat Throat Exam: Oral Mucosa [place] & Moist (Luh Chavis) Pulmonary Resp Exam: Clear Bilaterally, Breath Sounds Equal (Luh Chavis) Cardiology CV Exam: Irregular (Luh Chavis) Gastrointestinal/Abdomen GI Exam: Soft, Non-Tender, Bowel Sounds Present GI Remarks NG tube , discontinued this p.m. (Luh ChavisP) Musculoskeletal MS Exam: Normal Tone MS Remarks Status post right hip repair. 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 Right hip femoral neck fracture with angulation and displacement. Fall 2. Probable urinary tract infection. 3. Acute kidney injury. 4. Atrial fibrillation currently on Coumadin therapy. Gastroesophageal reflux disease. 5. Hyperlipidemia. 6. Hypertension. 7. POSSIBLE NSTEMI \Patient seen in medical room postop. Patient is up in chair and family is present Appreciate Cardiology input chest pain, with elevated troponin Initially on heparin drip , cardiac catheter done for surgical clearance and to evaluate any CAD Very minimal disease , chest pain unlikely a cardiac event, cleared for orthosis surgery today coumadin start back postop EZEKIEL Improved, B UN normal range creatinine, monitor UTI , med changed to PO Bactrim Cleared for surgery today. Seen postop without any acute issues. Up in chair NG tube in preop for nausea. Subsided. Patient is hungry. Full liquids and can resume regular food if patient has no nausea and vomiting resume home meds as appropriate DVT and GI prophylaxis D/W patient , and family . Answered questions. D/W Dr. salomon, patient seen on his behalf Calderon can be DC'd either late p.m. or early a.m. per patient's choice. (Luh Chavis) Assessment/Plan seen, examined by myself, Dr Salomon, today Doing well postoperatively, after right hip surgery Cardiac catheterization was negative Follow renal function Physical therapy She would like to go back to [place] soon Discussed with patient Discussed with mid level provider The exam, history, and the medical decision-making described in the above note were completed with the assistance of the mid-level provider. I reviewed the findings presented. I attest that I had a [id number] encounter with the patient on the same day, and personally performed and documented my assessment and findings in the medical record. . (Carmelina Salomon MD) Luh Chavis Jul 12, 2016 16:42 Carmelina Salomon MD Jul 12, 2016 18:15
[2016-07-12] MEDS: WARFARIN SOD 6 MG TAB PO SCH (18:27)
[2016-07-12] MEDS: PRAVASTATIN SOD 20 MG TAB PO SCH (20:48)
[2016-07-12] MEDS: SULFAMETHOXAZOLE-TRIMETHOPRIM DS 800-160 MG TAB PO SCH (20:48)
[2016-07-12] MEDS: SODIUM CHLORIDE 0.9% FLUSH 5 ML FLUSH IVF SCH (20:49)
[2016-07-13] VITALS (9 sets, daily range): BP systolic 101–148; BP diastolic 65–92; PULSE 80–98; RESP 16–20; TEMP 96.2–98.3; O2SAT 94–98
[2016-07-13] MEDS: LEVOTHYROXINE SODIUM 25 MCG TAB PO SCH (05:15)
[2016-07-13] MEDS: PANTOPRAZOLE 80 MG/100 ML NS IV SCH ×2 (05:16)
[2016-07-13 05:30] LABS: MEAN CELL VOLUME 82.5 FL (80.0-100.0); MEAN CORPUSCULAR HEMOGLOBIN 27.9 PG (27.0-34.0); MEAN CORPUSCULAR HGB CONC 33.8 % (32.0-36.0); PLATELET COUNT 237 TH/MM3 (150-450); RED CELL DISTRIBUTION WIDTH 14.6 % (11.6-17.2); REVIEW FLAG FINAL; WHITE BLOOD COUNT 11.8 TH/MM3 (4.0-11.0)
[2016-07-13 05:35] LABS: PROTHROMBIN TIME - PATIENT 11.4 SEC (9.8-11.6)
[2016-07-13] MEDS: SODIUM CHLOR 0.9% 1000 ML INJ 1,000 ML IV SCH ×2 (06:00→16:00)
--- NOTE | 2016-07-13 07:04 | PD.ORT.PN ---
Subjective Subjective Remarks POD 1 s/p right hip hemiarthroplasty -doing well. pain controlled. out of bed to chair yesterday Objective Vitals Vital Signs Date Time Temp Pulse Resp B/P Pulse Ox O2 Delivery O2 Flow Rate FiO2 07/13/16 04:00 96.8 85 16 101/65 95 07/13/16 02:04 81 07/13/16 00:00 98.3 96 20 148/92 98 07/12/16 20:00 97.9 78 16 98/70 96 07/12/16 15:15 97.9 80 18 94/58 98 07/12/16 13:00 88 16 119/60 95 Nasal Cannula 3 07/12/16 12:30 98 16 144/91 96 Nasal Cannula 3 07/12/16 12:00 98 16 152/86 95 Nasal Cannula 3 07/12/16 11:45 92 16 141/81 94 Nasal Cannula 3 07/12/16 11:30 98 16 146/95 95 Nasal Cannula 3 07/12/16 11:15 102 16 139/91 94 Nasal Cannula 3 07/12/16 11:05 98.5 100 16 131/85 94 Nasal Cannula 3 I/O 07/12/16 07/12/16 07/12/16 07/13/16 07/13/16 07/13/16 07:00 15:00 23:00 07:00 15:00 23:00 Intake Total 939 ml 480 ml Output Total 325 ml 533 ml Balance 614 ml -53 ml Intake Oral 240 ml 480 ml IV Total 699 ml Output Urine Total 325 ml 525 ml Drainage Total 8 ml # Bowel Movements 0 Result Diagram: 07/13/16 0500 07/12/16 0357 Other Results Laboratory Tests Test 07/12/16 07/13/16 07:55 05:00 Prothrombin Time 12.2 SEC 11.4 SEC (9.8-11.6) (9.8-11.6) Prothromb Time International 1.1 RATIO 1.0 RATIO Ratio Imaging Last 24 hours Impressions Hip and Pelvis X-Ray 07/10/16419 Signed Impressions: Service Date/Time: Sunday, July 10, 2016 04:35 - CONCLUSION: 1. Right femoral neck fracture with mild angulation and displacement. Clemente Honeycutt MD Chest X-Ray 07/10/16419 Signed Impressions: Service Date/Time: Sunday, July 10, 2016 04:37 - CONCLUSION: 1. No acute findings. Mildly tortuous aorta. Clemente Honeycutt MD Objective Remarks RLE: dressings clean and dry. intact. + drain. +knee brace. NVI Assessment & Plan Assessment and Plan 1) Right Femoral Neck Fx s/p Hemiarthroplasty - POD 1 -WBAT -posterior hip precautions -dressing changes POD 2 -knee brace while in bed -DC drain POD 2 -CM for rehab vs home with [facility]. spoke with patient and she would like to go home. informed her that she has to be able to ambulate the hallway on own and get to bathroom on own before we could consider going home instead of rehab. if struggling, will need rehab. [id number] on chart and face to face completed for either option -plan for DC either saturday/saturday -f/u with Max or JESSICA in 2 weeks -restart home dose coumadin and bridge with loveCong Hickman Jul 13, 2016 07:04
[2016-07-13] MEDS ORDERED: TRAM50TA PO (07:05)
--- NOTE | 2016-07-13 07:06 | HHI.FF ---
Face to Face Verification Diagnosis: (1) Fracture of femoral neck, right Physical Therapy Gait training Hip: Total hip, Protocol: Right, Posterior hip precautions Canvas Knee Splint: Other (only while in bed) Right LE Weight Bearing: WB as tolerated Nursing Dressing Changes: Daily dressing change, Coverderm/Primapore (begin xeroform POD 10) I have seen patient Autumn Carreno on 07/13/16. My clinical findings support the need for the requested home health care services because: Ltd mobility - disease progression I certify that my clinical findings support that this patient is homebound because: Post-op weakness Cong Payne Jul 13, 2016 07:06
[2016-07-13] MEDS: FLUTICASONE PROPIONATE 50 MCG/ACT 16 GM NASAL SPRAY EACH NARE SCH ×2 (09:00→20:54)
[2016-07-13] MEDS: SODIUM CHLORIDE 0.9% FLUSH 5 ML FLUSH IVF SCH ×2 (09:00→20:54)
--- NOTE | 2016-07-13 09:41 | HHI.PR ---
Subjective Subjective Remarks No chest pain No shortness of breath Hungry Alert in Review of Systems Constitutional Constitutional: Weakness (mild) Constitutional Remarks 10 point ROS done positives noted mild weakness and constipation otherwise negative GI/Abdomen GI/Abdominal Exam: Constipation Musculoskeletal MS: Weakness, Stiffness (post op rt. hip) Integumentary Skin: Wounds (surgical, CDI) Vitals/Results Intake & Output 07/12/16 07/12/16 07/13/16 15:00 23:00 07:00 Intake Total 480 ml Output Total 533 ml Balance -53 ml Intake Oral 480 ml Output Urine Total 525 ml Drainage Total 8 ml # Bowel Movements 0 Vital Signs Vital Signs Date Time Temp Pulse Resp B/P Pulse Ox O2 Delivery O2 Flow Rate FiO2 07/13/16 08:16 98.3 83 18 115/65 94 07/13/16 04:00 96.8 85 16 101/65 95 07/13/16 02:04 81 07/13/16 00:00 98.3 96 20 148/92 98 07/12/16 20:00 97.9 78 16 98/70 96 07/12/16 15:15 97.9 80 18 94/58 98 07/12/16 13:00 88 16 119/60 95 Nasal Cannula 3 07/12/16 12:30 98 16 144/91 96 Nasal Cannula 3 07/12/16 12:00 98 16 152/86 95 Nasal Cannula 3 07/12/16 11:45 92 16 141/81 94 Nasal Cannula 3 07/12/16 11:30 98 16 146/95 95 Nasal Cannula 3 07/12/16 11:15 102 16 139/91 94 Nasal Cannula 3 07/12/16 11:05 98.5 100 16 131/85 94 Nasal Cannula 3 CBC/BMP: 07/13/16 0500 07/12/16 0357 Lab Results Laboratory Tests Test 07/13/16 05:00 White Blood Count 11.8 TH/MM3 Red Blood Count 4.00 MIL/MM3 Hemoglobin 11.2 GM/DL Hematocrit 33.0 % Mean Corpuscular Volume 82.5 FL Mean Corpuscular Hemoglobin 27.9 PG Mean Corpuscular Hemoglobin 33.8 % Concent Red Cell Distribution Width 14.6 % Platelet Count 237 TH/MM3 Mean Platelet Volume 8.2 FL Prothrombin Time 11.4 SEC Prothromb Time International 1.0 RATIO Ratio Current Medications Active Medications Acetaminophen/ Hydrocodone Bitart (May 7.5-325 Mg) 1 tab Q4H PRN PO; Start 07/12/16 at 10:45; Stop 07/13/16 at 07:55; Status DC Acetaminophen/ Hydrocodone Bitart (May 7.5-325 Mg) 2 tab Q4H PRN PO; Start 07/12/16 at 10:45; Stop 07/13/16 at 07:55; Status DC Cefazolin Sodium/ Dextrose (Ancef 2 Gm Premix) 50 ml @ 100 mls/hr Q6H IV; Start 07/12/16 at 10:45; Stop 07/12/16 at 11:21; Status DC Cholecalciferol (Vitamin D3) 5,000 units DAILY PO; Start 07/13/16 at 09:00 Enoxaparin Sodium (Lovenox Inj) 30 mg Q24H SQ; Start 07/13/16 at 10:00; Stop 07/15 at 10:01 Ergocalciferol (Drisdol) 50,000 units ONCE ONCE PO; Start 07/12/16 at 11:00; Stop 07/12/16 at 11:01; Status DC IV Flush (NS Flush) 2 ml UNSCH PRN IVF; Start 07/12/16 at 10:45 IV Flush 2 ml 2 ml BID IVF Last administered on 07/12/16 20:49; Admin Dose 2 ML ; Start 07/12/16 at 21:00 Miscellaneous Information ALL NURSING DEPARTME... UNSCH PRN XX; Start 07/12/16 at 11:00; Stop 07/13/16 at 10:59 Miscellaneous Information (Post-op Orders (for Pharmacy)) STAT ONCE XX; Start 07/12/16 at 11:00; Stop 07/12/16 at 11:12; Status DC Miscellaneous Information 1 1 Q3D TD; Start 07/14/16 at 02:45 Patient Medication Teaching (Coumadin Booklet) 1 ONCE ONCE XX Last administered on 07/12/16 18:27; Admin Dose 1; Start 07/12/16 at 18:00; Stop at 18:01; Status DC Tramadol HCl (Ultram) 50 mg Q4H PRN PO; Start 07/13/16 at 08:00 Tranexamic Acid/ Sodium Chloride (Cyklokapron Inj/ NS Inj) 111.67 ml @ 200 mls / hr UNSCH IV; Start 07/12/16 at 10:00; Stop 07/12/16 at 14:00; Status DC Trimethoprim/ Sulfamethoxazole (Bactrim Ds 800-160 Mg) 1 tab Q12HR PO Last administered on 07/12/16 20:48; Admin Dose 1 TAB; Start 07/12/16 at 21:00 Warfarin Sodium (Coumadin) 6 mg DAILY@1600 PO Last administered on 07/12/16 18: 27; Admin Dose 6 MG; Start 07/12/16 at 18:00 Physical Exam General General Appearance: No Acute Distress, Comfortable Eyes Eye Exam: Pupils Equal, Pupils Reactive Throat Throat Exam: Oral Mucosa [place] & Moist Pulmonary Resp Exam: Clear Bilaterally, Breath Sounds Equal Cardiology CV Exam: Irregular Gastrointestinal/Abdomen GI Exam: Soft, Non-Tender, Bowel Sounds Present Musculoskeletal MS Exam: Normal Tone MS Remarks Status post right hip repair. Dressing clean dry and intact Integumentary Skin Exam: Warm, Dry, Intact, Normal Turgor Extremeties Extremities Exam: No Edema Neurologic Neuro Exam: Alert, Awake, Oriented, Speech Clear Psychiatric Psych Exam: Appropriate Responses Assessment/Plan Assessment/Plan 1. Right hip femoral neck fracture with angulation and displacement. Fall surgery yesterday. Followed per ortho for post op care and pain management. Possible Saturday or Saturday pending ambulation . Patient wants to go home, but will assess after PT works with her. 2. Probable urinary tract infection., meds , Bactrim 3. Acute kidney injury. laqbs improved, resolving 4. Atrial fibrillation currently on Coumadin therapy. Coumadin restarted. INR, 1.0 Gastroesophageal reflux, medical management, changed to Pepcid 20mg PO BID. 5. Hyperlipidemia. medical management 6. Hypertension. stable on meds. 115/65 this am 7. POSSIBLE NSTEMI, Ruled out Negative cardiac workup. Chronic atrial fib, on Coumadin 8. Constipation, added daily Miralax vitals, labs reviewed. Vitamin D level low, will discuss PO OP vitamin D med. Patient walking first time to bathroom. Will return for questions. spoke to . Luh Chavis Jul 13, 2016 09:41
[2016-07-13] MEDS: TOLTERODINE TARTRATE 4 MG CAP LA PO SCH (09:59)
[2016-07-13] MEDS: ENOXAPARIN SODIUM 30 MG/0.3 ML SYRINGE SQ SCH (09:59)
[2016-07-13] MEDS: DILTIAZEM-CD 180 MG CAP ER PO SCH (10:00)
[2016-07-13] MEDS: SULFAMETHOXAZOLE-TRIMETHOPRIM DS 800-160 MG TAB PO SCH ×2 (10:00→20:53)
[2016-07-13] MEDS: CHOLECALCIFEROL (VIT D3) 5000 UNIT CAP PO SCH (10:00)
[2016-07-13] MEDS: traMADol HCL 50 MG TAB PO PRN ×2 (10:01→17:17)
[2016-07-13] MEDS: POLYETHYLENE GLYCOL 17 GM PKG PO SCH (13:03)
[2016-07-13] MEDS: WARFARIN SOD 6 MG TAB PO SCH (17:17)
[2016-07-13] MEDS: PRAVASTATIN SOD 20 MG TAB PO SCH (20:53)
[2016-07-13] MEDS: FAMOTIDINE 20 MG TAB PO SCH (20:53)
[2016-07-13] MEDS ORDERED: FAMOTIDINE 20 MG TAB PO SCH (21:00)
[2016-07-14] VITALS (7 sets, daily range): BP systolic 107–135; BP diastolic 64–87; PULSE 79–103; RESP 16–20; TEMP 96–98.3; O2SAT 93–97
[2016-07-14] MEDS: SODIUM CHLOR 0.9% 1000 ML INJ 1,000 ML IV SCH ×3 (02:00→23:40)
[2016-07-14] MEDS: SCOPOLAMINE 1.5 MG PATCH TD SCH (02:01)
[2016-07-14] MEDS: traMADol HCL 50 MG TAB PO PRN ×4 (02:02→23:39)
[2016-07-14] MEDS ORDERED: REMOVE OLD SCOPOLAMINE PATCH TD SCH (02:45)
[2016-07-14] MEDS: LEVOTHYROXINE SODIUM 25 MCG TAB PO SCH (04:49)
[2016-07-14 07:09] LABS: INTERNATIONAL NORMALIZED RATIO 1.1 RATIO; PROTHROMBIN TIME - PATIENT 12.3 SEC (9.8-11.6)
[2016-07-14] MEDS: TOLTERODINE TARTRATE 4 MG CAP LA PO SCH (09:00)
[2016-07-14] MEDS: FLUTICASONE PROPIONATE 50 MCG/ACT 16 GM NASAL SPRAY EACH NARE SCH ×2 (09:00→23:33)
[2016-07-14] MEDS: FAMOTIDINE 20 MG TAB PO SCH ×2 (09:00→23:40)
[2016-07-14] MEDS: DILTIAZEM-CD 180 MG CAP ER PO SCH (09:21)
[2016-07-14] MEDS: SULFAMETHOXAZOLE-TRIMETHOPRIM DS 800-160 MG TAB PO SCH ×2 (09:21→23:39)
[2016-07-14] MEDS: ENOXAPARIN SODIUM 30 MG/0.3 ML SYRINGE SQ SCH (09:21)
[2016-07-14] MEDS: SODIUM CHLORIDE 0.9% FLUSH 5 ML FLUSH IVF SCH ×2 (09:21→23:40)
[2016-07-14] MEDS: CHOLECALCIFEROL (VIT D3) 5000 UNIT CAP PO SCH (09:21)
[2016-07-14] MEDS: POLYETHYLENE GLYCOL 17 GM PKG PO SCH (09:23)
--- NOTE | 2016-07-14 09:32 | PD.ORT.PN ---
Subjective Subjective Remarks doing well. would like to go rehab. Objective Vitals Vital Signs Date Time Temp Pulse Resp B/P Pulse Ox O2 Delivery O2 Flow Rate FiO2 07/14/16 04:00 96.3 88 20 116/76 95 07/14/16 00:00 96.0 90 20 135/81 95 07/13/16 20:00 96.2 89 20 126/70 98 07/13/16 16:15 97.9 80 18 122/74 95 07/13/16 15:00 98 07/13/16 12:14 97.4 80 16 124/65 95 07/13/16 09:41 96 21 I/O 07/13/16 07/13/16 07/13/16 07/14/16 07/14/16 07/14/16 07:00 15:00 23:00 07:00 15:00 23:00 Intake Total 860 ml 480 ml 240 ml Output Total 5 ml 7 ml Balance 860 ml 475 ml 233 ml Intake Oral 860 ml 480 ml 240 ml Drainage Total 5 ml 7 ml # Voids 6 2 4 # Bowel Movements 0 0 Result Diagram: 07/13/16 0500 07/12/16 0357 Other Results Laboratory Tests Test 07/14/16 06:30 Prothrombin Time 12.3 SEC (9.8-11.6) Prothromb Time International 1.1 RATIO Ratio Imaging Last 24 hours Impressions Hip and Pelvis X-Ray 07/10/16419 Signed Impressions: Service Date/Time: Sunday, July 10, 2016 04:35 - CONCLUSION: 1. Right femoral neck fracture with mild angulation and displacement. Clemente Honeycutt MD Chest X-Ray 07/10/16419 Signed Impressions: Service Date/Time: Sunday, July 10, 2016 04:37 - CONCLUSION: 1. No acute findings. Mildly tortuous aorta. Clemente Honeycutt MD Objective Remarks RLE: dressings clean and dry. intact. +knee brace. NVI Assessment & Plan Assessment and Plan 1) Right Femoral Neck Fx s/p Hemiarthroplasty - POD 2 -WBAT -posterior hip precautions -dressing changes qday -knee brace while in bed -plan for DC to rehab today to [facility] -lovenox/coumadin -f/u with Max or JESSICA in 2 weeks Morgan Moon Jr., MD Jul 14, 2016 09:32
--- NOTE | 2016-07-14 13:09 | HHI.PR ---
Subjective Remarks 76yr old female seen and examined today. No CP/SOB/NVD. Hemodynamically stable. Cleared by ortho for dc to [facility] today. Objective Objective Results - Vital Signs Date Time Temp Pulse Resp B/P Pulse Ox O2 Delivery O2 Flow Rate FiO2 07/14/16 07:52 96.7 87 16 124/80 97 07/14/16 04:00 96.3 88 20 116/76 95 07/14/16 00:00 96.0 90 20 135/81 95 07/13/16 20:00 96.2 89 20 126/70 98 07/13/16 16:15 97.9 80 18 122/74 95 07/13/16 15:00 98 I/O 07/13/16 07/13/16 07/13/16 07/14/16 07/14/16 07/14/16 07:00 15:00 23:00 07:00 15:00 23:00 Intake Total 860 ml 480 ml 240 ml Output Total 5 ml 7 ml Balance 860 ml 475 ml 233 ml Intake Oral 860 ml 480 ml 240 ml Drainage Total 5 ml 7 ml # Voids 6 2 4 # Bowel Movements 0 0 Result Diagram: 07/13/16 0500 07/12/16 0357 Other Results Laboratory Tests Test 07/14/16 06:30 Prothrombin Time 12.3 Prothromb Time International 1.1 Ratio Date/Time Procedure Status Source Growth 07/10/16 05:00 Urine Culture - Final Complete Urine Random Urine Escherichia Coli Physical Exam Physical Exam PHYSICAL EXAMINATION GENERAL: This is a well-developed, well-nourished female who appears to be in no acute distress. She is alert and awake, []. HEAD: Normocephalic without any lesion or mass noted. Facial features appear symmetric. EYES: Perrla, Normal eye movement, [] Icterus. [] Conj congestion. OROPHARYNGEAL: Oropharynx without erythema or edema. MOUTH/THROAT: Tongue midline []. Buccal mucosa is moist []. NECK: Supple. No nuchal rigidity or lymphadenopathy. Trachea midline without deviation. Thyroid not palpable, no bruits appreciated. CARDIAC: Regular rhythm, regular rate, S1 and S2 are heard. Murmur []; no gallops or rubs. LUNGS: Clear to auscultation bilaterally. [] wheeze, [] rhonchi or [] rale. No use of accessory muscles on inspiration or expiration. ABDOMEN: Soft, nontender, no organomegaly or masses. Bowel sounds are heard in all four quadrants. No rebound. No guarding. EXTREMITIES: [] edema. Pulses equal bilateral. [] cyanosis. NEUROLOGICAL: Patient mood and affect appropriate. Cranial nerves II through XII grossly intact. Muscle strength 5/5 in the upper and lower extremities bilaterally. Deep tendon reflexes are 2+ in the upper and lower extremities bilaterally. SKIN:Warm and moist PSYCH: Mood and affect appropriate Amy Johnson MD Jul 14, 2016 13:09
[2016-07-14] MEDS: WARFARIN SOD 10 MG TAB PO SCH (15:51)
[2016-07-14] MEDS ORDERED: WARFARIN SOD 6 MG TAB PO SCH (16:00)
[2016-07-14] MEDS: PRAVASTATIN SOD 20 MG TAB PO SCH (23:39)
[2016-07-15] VITALS (8 sets, daily range): BP systolic 115–136; BP diastolic 71–95; PULSE 89–102; RESP 16–18; TEMP 96.8–98.2; O2SAT 93–97
[2016-07-15] MEDS: LEVOTHYROXINE SODIUM 25 MCG TAB PO SCH (05:49)
[2016-07-15] MEDS: SODIUM CHLOR 0.9% 1000 ML INJ 1,000 ML IV SCH ×2 (08:00→14:49)
[2016-07-15] MEDS: FLUTICASONE PROPIONATE 50 MCG/ACT 16 GM NASAL SPRAY EACH NARE SCH ×2 (09:00→20:36)
[2016-07-15] MEDS: TOLTERODINE TARTRATE 4 MG CAP LA PO SCH (09:36)
[2016-07-15] MEDS: SULFAMETHOXAZOLE-TRIMETHOPRIM DS 800-160 MG TAB PO SCH ×2 (09:36→20:35)
[2016-07-15] MEDS: CHOLECALCIFEROL (VIT D3) 5000 UNIT CAP PO SCH (09:36)
[2016-07-15] MEDS: DILTIAZEM-CD 180 MG CAP ER PO SCH (09:36)
[2016-07-15] MEDS: FAMOTIDINE 20 MG TAB PO SCH ×2 (09:36→20:37)
[2016-07-15] MEDS: POLYETHYLENE GLYCOL 17 GM PKG PO SCH (09:37)
[2016-07-15] MEDS: traMADol HCL 50 MG TAB PO PRN ×2 (09:37→20:36)
[2016-07-15] MEDS: SODIUM CHLORIDE 0.9% FLUSH 5 ML FLUSH IVF SCH ×2 (09:37→20:36)
[2016-07-15] MEDS: ENOXAPARIN SODIUM 30 MG/0.3 ML SYRINGE SQ SCH (09:38)
[2016-07-15 13:05] LABS: INTERNATIONAL NORMALIZED RATIO 1.3 RATIO
[2016-07-15] MEDS: MAGNESIUM HYDROXIDE SUSP 30 ML CUP PO PRN ×2 (13:30→20:35)
[2016-07-15] MEDS: WARFARIN SOD 10 MG TAB PO SCH (14:49)
--- NOTE | 2016-07-15 15:11 | HHI.PR ---
Subjective Remarks 76yr old female seen and examined today. No CP/SOB/NVD. Hemodynamically stable. Cleared by ortho for dc to [place]. Could not go yesterday as she did not have a BM. Objective Objective Results - Vital Signs Date Time Temp Pulse Resp B/P Pulse Ox O2 Delivery O2 Flow Rate FiO2 07/15/16 11:30 97.6 89 16 115/73 93 07/15/16 08:35 97 21 07/15/16 08:00 97.6 100 16 131/79 96 07/15/16 04:15 97.5 91 18 125/72 97 07/15/16 00:21 97.1 100 18 136/95 94 07/14/16 20:39 94 2.00 07/14/16 20:18 98.3 103 17 119/87 96 07/14/16 16:00 97.0 87 16 107/78 93 I/O 07/14/16 07/14/16 07/14/16 07/15/16 07/15/16 07/15/16 07:00 15:00 23:00 07:00 15:00 23:00 Intake Total 240 ml 840 ml 480 ml 480 ml Output Total 7 ml Balance 233 ml 840 ml 480 ml 480 ml Intake Oral 240 ml 840 ml 480 ml 480 ml Drainage Total 7 ml # Voids 4 3 3 5 # Bowel Movements 0 0 0 0 Result Diagram: 07/13/16 0500 07/12/16 0357 Other Results Laboratory Tests Test 07/15/16 12:13 Prothrombin Time 15.0 Prothromb Time International 1.3 Ratio ROS General: No: Fatigue, Weakness, Other HEENT: No: Sore Throat, Dysphagia, Other Cardiac: No: Chest Pain, Edema, Palpitations, Other Pulmonary: No: Cough, SOB, Wheezing, Other GI: No: Abdominal Pain, BM, Diarrhea, N/V, 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 She is alert and awake. HEAD: Normocephalic without any lesion or mass noted. Facial features appear symmetric. EYES: Perrla, Normal eye movement. OROPHARYNGEAL: Oropharynx without erythema or edema. MOUTH/THROAT: Buccal mucosa is moist. NECK: Supple. CARDIAC: Regular rhythm, regular rate, S1 and S2 are heard. LUNGS: Clear to auscultation bilaterally. ABDOMEN: Soft, nontender, no organomegaly or masses. Bowel sounds are heard in all four quadrants. No rebound. No guarding. EXTREMITIES: S/p right hip repair. Dressing clean/dry. NEUROLOGICAL: No focal deficits. SKIN:Warm and moist PSYCH: Mood and affect appropriate A/P Assessment and Plan Assessment/Plan 1. Right hip femoral neck fracture with angulation and displacement. surgery on 07/12/16. 2. Probable urinary tract infection., meds , Bactrim 3. Acute kidney injury. labs improved, resolving 4. Atrial fibrillation currently on Coumadin therapy. Coumadin restarted. INR, 1.3 Gastroesophageal reflux, medical management, changed to Pepcid 20mg PO BID. 5. Hyperlipidemia. medical management 6. Hypertension. stable on meds. 7. POSSIBLE NSTEMI, Ruled out Negative cardiac workup. Chronic atrial fib, on Coumadin 8. Constipation, added daily Miralax Dc to rehab once she has a bm. Amy Johnson MD Jul 15, 2016 15:11
--- NOTE | 2016-07-15 17:15 | PD.ORT.PN ---
Subjective Subjective Remarks no BM. doing well. would like to go rehab. Objective Vitals Vital Signs Date Time Temp Pulse Resp B/P Pulse Ox O2 Delivery O2 Flow Rate FiO2 07/15/16 11:30 97.6 89 16 115/73 93 07/15/16 08:35 97 21 07/15/16 08:00 97.6 100 16 131/79 96 07/15/16 04:15 97.5 91 18 125/72 97 07/15/16 00:21 97.1 100 18 136/95 94 07/14/16 20:39 94 2.00 07/14/16 20:18 98.3 103 17 119/87 96 I/O 07/14/16 07/14/16 07/14/16 07/15/16 07/15/16 07/15/16 07:00 15:00 23:00 07:00 15:00 23:00 Intake Total 240 ml 840 ml 480 ml 480 ml Output Total 7 ml Balance 233 ml 840 ml 480 ml 480 ml Intake Oral 240 ml 840 ml 480 ml 480 ml Drainage Total 7 ml # Voids 4 3 3 5 # Bowel Movements 0 0 0 0 Result Diagram: 07/13/16 0500 07/12/16 0357 Other Results Laboratory Tests Test 07/15/16 12:13 Prothrombin Time 15.0 SEC (9.8-11.6) Prothromb Time International 1.3 RATIO Ratio Imaging Last 24 hours Impressions Hip and Pelvis X-Ray 07/10/16419 Signed Impressions: Service Date/Time: Sunday, July 10, 2016 04:35 - CONCLUSION: 1. Right femoral neck fracture with mild angulation and displacement. Clemente Honeycutt MD Chest X-Ray 07/10/16419 Signed Impressions: Service Date/Time: Sunday, July 10, 2016 04:37 - CONCLUSION: 1. No acute findings. Mildly tortuous aorta. Clemente Honeycutt MD Objective Remarks RLE: dressings clean and dry. intact. +knee brace. NVI Assessment & Plan Assessment and Plan 1) Right Femoral Neck Fx s/p Hemiarthroplasty - POD 3 -no BM yet. continue bowel regimen. doing well otherwise. -WBAT -posterior hip precautions -dressing changes qday -knee brace while in bed -plan for DC to rehab [facility] -lovenox/coumadin -f/u with Max or JESSICA in 2 weeks Morgan Moon Jr., MD Jul 15, 2016 17:15
[2016-07-15] MEDS: PRAVASTATIN SOD 20 MG TAB PO SCH (20:35)
[2016-07-16] MEDS: SODIUM CHLOR 0.9% 1000 ML INJ 1,000 ML IV SCH (04:00)
[2016-07-16 04:30] VITALS: BP 129/86; PULSE 90; RESP 17; TEMP 96.9; O2SAT 96
[2016-07-16] MEDS: LEVOTHYROXINE SODIUM 25 MCG TAB PO SCH (05:34)
[2016-07-16 07:45] VITALS: BP 112/64; PULSE 98; RESP 16; TEMP 97.5; O2SAT 94
[2016-07-16 08:02] LABS: HEMATOCRIT 34.7 % (35.0-46.0); MEAN CELL VOLUME 82.7 FL (80.0-100.0); MEAN CORPUSCULAR HEMOGLOBIN 28.5 PG (27.0-34.0); MEAN CORPUSCULAR HGB CONC 34.5 % (32.0-36.0); PLATELET COUNT 303 TH/MM3 (150-450); RED BLOOD COUNT 4.19 MIL/MM3 (4.00-5.30); RED CELL DISTRIBUTION WIDTH 15.1 % (11.6-17.2); REVIEW FLAG FINAL; WHITE BLOOD COUNT 10.5 TH/MM3 (4.0-11.0)
[2016-07-16 08:12] LABS: INTERNATIONAL NORMALIZED RATIO 1.7 RATIO; PROTHROMBIN TIME - PATIENT 18.7 SEC (9.8-11.6)
--- NOTE | 2016-07-16 08:47 | PD.ORT.PN ---
Subjective Subjective Remarks Pain controlled doing well No bowel movements yet Objective Vitals Vital Signs Date Time Temp Pulse Resp B/P Pulse Ox O2 Delivery O2 Flow Rate FiO2 07/16/16 04:30 96.9 90 17 129/86 96 07/15/16 23:50 98.2 102 17 116/76 94 07/15/16 20:40 97.7 90 16 127/77 94 07/15/16 16:14 96.8 98 16 117/71 97 07/15/16 11:30 97.6 89 16 115/73 93 I/O 07/15/16 07/15/16 07/15/16 07/16/16 07/16/16 07/16/16 07:00 15:00 23:00 07:00 15:00 23:00 Intake Total 480 ml 960 ml 480 ml 240 ml Balance 480 ml 960 ml 480 ml 240 ml Intake Oral 480 ml 960 ml 480 ml 240 ml # Voids 5 4 2 3 # Bowel Movements 0 0 0 0 Result Diagram: 07/16/16 0704 07/12/16 0357 Other Results Laboratory Tests Test 07/15/16 07/16/16 12:13 07:04 Prothrombin Time 15.0 SEC 18.7 SEC (9.8-11.6) (9.8-11.6) Prothromb Time International 1.3 RATIO 1.7 RATIO Ratio Imaging Last 24 hours Impressions Hip and Pelvis X-Ray 07/10/16419 Signed Impressions: Service Date/Time: Sunday, July 10, 2016 04:35 - CONCLUSION: 1. Right femoral neck fracture with mild angulation and displacement. Clemente Honeycutt MD Chest X-Ray 07/10/16419 Signed Impressions: Service Date/Time: Sunday, July 10, 2016 04:37 - CONCLUSION: 1. No acute findings. Mildly tortuous aorta. Clemente Honeycutt MD Objective Remarks RLE: dressings clean and dry. intact. +knee brace. NVI Assessment & Plan Assessment and Plan 1) Right Femoral Neck Fx s/p Hemiarthroplasty - POD 4 -no BM yet. continue bowel regimen. doing well otherwise. -WBAT -posterior hip precautions -dressing changes daily -knee brace while in bed -plan for DC to rehab [facility] -coumadin -f/u with Max LOPEZ in 2 weeks ALFREDO MANCERA PA-C Jul 16, 2016 08:47
[2016-07-16] MEDS: FAMOTIDINE 20 MG TAB PO SCH (09:00)
[2016-07-16] MEDS: FLUTICASONE PROPIONATE 50 MCG/ACT 16 GM NASAL SPRAY EACH NARE SCH (09:00)
[2016-07-16] MEDS: TOLTERODINE TARTRATE 4 MG CAP LA PO SCH (09:14)
[2016-07-16] MEDS: POLYETHYLENE GLYCOL 17 GM PKG PO SCH (09:14)
[2016-07-16] MEDS: SODIUM CHLORIDE 0.9% FLUSH 5 ML FLUSH IVF SCH (09:14)
[2016-07-16] MEDS: CHOLECALCIFEROL (VIT D3) 5000 UNIT CAP PO SCH (09:14)
[2016-07-16] MEDS: SULFAMETHOXAZOLE-TRIMETHOPRIM DS 800-160 MG TAB PO SCH (09:14)
[2016-07-16] MEDS: DILTIAZEM-CD 180 MG CAP ER PO SCH (09:14)
[2016-07-16] MEDS ORDERED: BISACODYL 10 MG SUPP RECTAL ONE (09:30)
[2016-07-16] MEDS ORDERED: COUM7.5T PO (11:25)
--- NOTE | 2016-07-16 11:26 | HHI.DCPOC ---
Discharge Care Plan Diagnosis: (1) Fall (2) Fracture of femoral neck, right Your Health Problems Are: Swelling Leg Swelling Goals to Promote Your Health * To prevent worsening of your condition and complications * To maintain your health at the optimal level Directions to Meet Your Goals Take your medications as prescribed Follow your dietary instruction Follow activity as directed Keep your appointments as scheduled Take your immunizations and boosters as scheduled If your symptoms worsen call your PCP, if no PCP go to Urgent Care Center or Emergency Room Smoking is Dangerous to Your Health. Avoid second hand smoke Call the 24-hour hour crisis hotline for domestic abuse at Jade Randall [facility] Jul 16, 2016 11:26
[2016-07-16 11:38] VITALS: BP 105/68; PULSE 86; RESP 16; TEMP 98; O2SAT 96
--- NOTE | 2016-07-16 11:43 | HHI.PR ---
Subjective Subjective Remarks no cp no sob had small BM pain controlled tele-aflutter, HR controlled 90 no n/v waiting to go to [facility] today Review of Systems Constitutional Constitutional: Weakness (mild) Constitutional Remarks 12 point ROS completed, negative except as noted above GI/Abdomen GI/Abdominal Exam: Constipation Musculoskeletal MS: Weakness, Stiffness (post op rt. hip) Integumentary Skin: Wounds (surgical, CDI) Vitals/Results Intake & Output 07/15/16 07/15/16 07/16/16 15:00 23:00 07:00 Intake Total 960 ml 480 ml Balance 960 ml 480 ml Intake Oral 960 ml 480 ml # Voids 4 2 # Bowel Movements 0 0 Vital Signs Vital Signs Date Time Temp Pulse Resp B/P Pulse Ox O2 Delivery O2 Flow Rate FiO2 07/16/16 07:45 97.5 98 16 112/64 94 07/16/16 04:30 96.9 90 17 129/86 96 07/15/16 23:50 98.2 102 17 116/76 94 07/15/16 20:40 97.7 90 16 127/77 94 07/15/16 16:14 96.8 98 16 117/71 97 CBC/BMP: 07/16/16 0704 07/12/16 0357 Lab Results Laboratory Tests Test 07/15/16 07/16/16 12:13 07:04 Prothrombin Time 15.0 SEC 18.7 SEC Prothromb Time International 1.3 RATIO 1.7 RATIO Ratio White Blood Count 10.5 TH/MM3 Red Blood Count 4.19 MIL/MM3 Hemoglobin 12.0 GM/DL Hematocrit 34.7 % Mean Corpuscular Volume 82.7 FL Mean Corpuscular Hemoglobin 28.5 PG Mean Corpuscular Hemoglobin 34.5 % Concent Red Cell Distribution Width 15.1 % Platelet Count 303 TH/MM3 Mean Platelet Volume 8.3 FL Physical Exam General General Appearance: No Acute Distress, Comfortable Eyes Eye Exam: Pupils Equal, Pupils Reactive Ears & Nose Ears & Nose Exam: Nasal Mucosa [employer] Throat Throat Exam: Oral Mucosa [employer] & Moist Pulmonary Resp Exam: Clear Bilaterally, Breath Sounds Equal Cardiology CV Exam: Irregular, Arrhythmia Gastrointestinal/Abdomen GI Exam: Soft, Non-Tender, Bowel Sounds Present, Non-Distended Musculoskeletal MS Exam: Normal Tone MS Remarks right hip, dressing D/I Integumentary Skin Exam: Warm, Dry, Intact, Normal Turgor Extremeties Extremities Exam: No Edema, Pedal Pulses Palpable Neurologic Neuro Exam: Alert, Awake, Oriented, Speech Clear, Moving All Extremities, [employer]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 Right hip femoral neck fracture with angulation and displacement-surgery on . -post op ortho care -bowel regimen -wound care -PT -Coumadin DVT prophylaxis 2. UTI, + ecoli -continue Bactrim 3. Acute kidney injury. -labs improved, resolving 4. Atrial fibrillation currently controlled -Continue Cardizem -continue Coumadin, INR 1.7 5. Gastroesophageal reflux -Pepcid 20mg PO BID. 5. Hyperlipidemia. -medical management 6. Hypertension. -stable on meds. 7. CP, elevated trop. POSSIBLE NSTEMI, Ruled out -S/P cardiac cath, non obstructive disease 07/11 -appreciate card input -Echo EF 60-65% 8. Constipation -bowel regimen Dc to rehab once she has a bm, poss. today F/U ortho Diet -heart healthy Activity per ortho D/W RN D/W Dr. Salomon D/W pt/ This patient was seen by myself and Dr. Salomon, this note is written on his behalf. Jade Randall Jul 16, 2016 11:43
[2016-07-16] MEDS: traMADol HCL 50 MG TAB PO PRN (12:59)
[2016-07-16] MEDS ORDERED: WARFARIN SOD 7.5 MG TAB PO SCH (16:00)
--- NOTE | 2016-07-18 13:25 | MD ---
ADMISSION DATE: 07/10/2016 DISCHARGE DATE: 07/16/2016 ADMITTING PHYSICIAN Emerita Pires MD DISCHARGE PHYSICIAN Amy Johnson MD CONSULTS REQUESTED Dr. Duane Johnson, Cardiology Dr. Wes Santana, Orthopedics DISCHARGING DIAGNOSES: 1. Right hip femoral neck fracture with angulation and displacement-surgery on . 2. UTI, + ecoli 3. Acute kidney injury. 4. Atrial fibrillation 5. Gastroesophageal reflux 5. Hyperlipidemia. 6. Hypertension. 7. CP, elevated trop. POSSIBLE NSTEMI, Ruled out 8. Constipation PROCEDURES PERFORMED A 12-lead EKG on 07/10/2016: Atrial flutter/tachycardia, low Q-wave voltage in extremity leads, ST deviation and moderate T-wave abnormality. Consider inferior ischemia, abnormal EKG. Chest x-ray on 07/10/2016: No acute findings. Chest x-ray on 07/10/2016: Mild interstitial vascular prominence which may represent mild fluid overload. Moderate sized hiatal hernia required NG tube. CT angio on 07/10/2016: No evidence of pulmonary embolism. X-ray of the right hip/pelvic on 07/10/2016: Conclusion right femoral neck fracture with mild angulation and displacement. Cardiac catheterization on 07/11/2016: Conclusion, mild nonobstructive coronary artery disease, normal left ventricular systolic function. 2-D echo on 07/11/2016: Impression, ejection fraction of 62-65%, wall motion was normal, left atrium was moderately dilated, moderate mitral valve vegetation. Right hip hemiarthroplasty on 07/12/2016. X-ray of the right hip on 07/12/2016: Right hip arthroplasty. HOSPITAL COURSE The patient is a pleasant 76 year-old white female who presented to the ER after a fall and landed on her right hip. In the ER, x-ray done showed right hip femoral neck fracture with angulation and displacement. The patient has a history of atrial fibrillation presently on Coumadin therapy. The patient was admitted, requested an orthopedic consult prior to the orthopedic procedure. A cardiology consult was requested. The patient underwent a 2-D echo and a cardiac catheterization and was cleared for surgery. A UA done in the ER was positive for urinary tract infection, so she was started on Rocephin. cultures showed e.coli. Pain management was done and for her blood pressure, she was started on Hydralazine as needed. The patient underwent right hip arthroplasty on 07/12/2016. The IV Rocephin was changed to p.o. Bactrim and the Coumadin was restarted on 07/13/2016 and the INR was monitored carefully. PUD prophylaxis was provided with Pepcid. As the patient had constipation, MiraLax was added. Her labs were checked and she had a low vitamin D level, so she was started on Cholecalciferol supplements. On 07/14/2016, the patient was hemodynamically stable. Her most recent labs showed a hemoglobin of 11.2 and hematocrit 33. BUN 16, creatinine 1.03, sodium was 142, potassium 3.5, sugar was 89. After discussing with orthopedics, it was decided to discharge the patient to [facility]. DISCHARGE DISPOSITION To [facility]. DISCHARGE CONDITION Stable DISCHARGE MEDICATIONS 1. Calcium carbonate 600/200 one tablet p.o. twice a day 2. Cholecalciferol 3. Vitamin D3 2000 units p.o. daily 4. Ergocalciferol 50,000 units p.o. q.weekly 5. Zofran 4 mg p.o. q6h as needed 6. Tramadol 50 mg p.o. every four hours as needed for pain #60 were dispensed. DISCHARGE INSTRUCTIONS Follow up with Dr. Wes Santana on 07/26/2016. NEW MEDICAL EQUIPMENT 1. Walker was given 2. Physical therapy evaluation and treatment was done. Amy Johnson MD [facility]
[2016-07-19] MEDS ORDERED: [UNRECOGNIZED DRUG - OTHER] (10:50)
[2016-07-19] MEDS ORDERED: GETGO ROLLING W1 MI1 (10:50)
[2016-07-19] MEDS ORDERED: COMMODE 3-IN-11 MIS (10:50)
[2016-07-23] MEDS ORDERED: COUM7.5T PO (12:03)
[2016-07-23] MEDS ORDERED: OMEP20CA2 PO (12:03)
[2016-07-23] MEDS ORDERED: LOSA50TA PO (12:03)
[2016-07-23] MEDS ORDERED: OXYB10TA PO (12:03)
[2016-07-23] MEDS ORDERED: DILT180C7 PO (12:03)
[2016-07-23] MEDS ORDERED: TRAM50TA PO (12:03)
[2016-07-23] MEDS ORDERED: HYDR25TA5 PO (12:03)
[2016-07-23] MEDS ORDERED: CALCTAB19 PO (12:03)
[2016-07-23] MEDS ORDERED: PRAV20TA2 PO (12:03)
[2016-07-23] MEDS ORDERED: FLEC100T PO (12:03)
[2016-07-23] MEDS ORDERED: LEVO25TA4 PO (12:03)
[2016-07-24] MEDS ORDERED: FLUT50SP EACH NARE (10:06)
== END 2016-07-16 14:12 | DRG 470 ==
LOC: NEPC 04:12 → NEDA 06:05 → N06A 08:37 → HIME 18:20 → HIMN 07-12 09:29 → HPAC 07-12 09:29 → N06A 07-12 14:04 → UNDODISIN 07-16 14:09
PROVIDERS: ADMIT Internal Medicine; ATTEND Internal Medicine
PROC: 30233K1 Transfusion of Nonautologous Frozen Plasma into Peripheral Vein, Percutaneous Approach (ICD-10-PCS; 2016-07-10)
PROC: 4A023N7 Measurement of Cardiac Sampling and Pressure, Left Heart, Percutaneous Approach (ICD-10-PCS; 2016-07-11)
PROC: B2111ZZ Fluoroscopy of Multiple Coronary Arteries using Low Osmolar Contrast (ICD-10-PCS; 2016-07-11)
PROC: B2151ZZ Fluoroscopy of Left Heart using Low Osmolar Contrast (ICD-10-PCS; 2016-07-11)
PROC: 0SRR0JZ Replacement of Right Hip Joint, Femoral Surface with Synthetic Substitute, Open Approach (ICD-10-PCS; principal; 2016-07-12 09:32)
DX: S72.001A Fracture of unspecified part of neck of right femur, initial encounter for closed fracture (principal); N17.9 Acute kidney failure, unspecified; N39.0 Urinary tract infection, site not specified; I48.92 Unspecified atrial flutter; K21.9 Gastro-esophageal reflux disease without esophagitis; E78.5 Hyperlipidemia, unspecified; I10 Essential (primary) hypertension; I48.91 Unspecified atrial fibrillation; E03.9 Hypothyroidism, unspecified; R11.2 Nausea with vomiting, unspecified; I25.10 Atherosclerotic heart disease of native coronary artery without angina pectoris; R07.9 Chest pain, unspecified; K59.00 Constipation, unspecified; R74.8 Abnormal levels of other serum enzymes; M81.0 Age-related osteoporosis without current pathological fracture; H50.9 Unspecified strabismus; W01.0XXA Fall on same level from slipping, tripping and stumbling without subsequent striking against object, initial encounter; T40.2X5A Adverse effect of other opioids, initial encounter; Y92.003 Bedroom of unspecified non-institutional (private) residence as the place of occurrence of the external cause; Y92.239 Unspecified place in hospital as the place of occurrence of the external cause; Z79.01 Long term (current) use of anticoagulants; Z86.73 Personal history of transient ischemic attack (TIA), and cerebral infarction without residual deficits; Z88.5 Allergy status to narcotic agent
CPT/HCPCS: 36430; 51702; 71010; 71275; 73502; 76937; 80048; 80053; 81001; 82306; 84484; 85025; 85027; 85610; 85730; 86900; 86901; 86927; 87077; 87086; 87186; 87641; 93005; 93306; 93458; 96361; 96374; 96375; C1769; C1776; C1893; C9113; J0131; J0690; J0696; J1100; J1170; J1580; J1644; J1650; J2250; J2270; J2370; J2405; J2710; J3010; J3370; J3430; J7030; J7050; J7120; L1830; P9017; Q9967